=== PATIENT | female | born 1955 | race Caucasian/White ===

== ENCOUNTER 2017-08-05 08:30 | Emergency (ER) | payer MEDICARE, BC ==
[2017-08-05] MEDS ORDERED: Ibuprofen 200 MG TAB ONE (09:59)
[2017-08-05] MEDS ORDERED: traMADol HCl 50 MG TAB ONE (09:59)
--- NOTE | 2017-08-05 11:26 | RAD ---
RIGHT ANKLE 3 VIEWS: Date: 08/05/17 HISTORY: Fall at home. Heel and leg pain. COMPARISON: None. FINDINGS: Incomplete visualization of tibial hardware. 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 Chron ic appearing widening of the syndesmosis and medial ankle mortise. No acute fracture is appreciated. Severe lymphedema. There is pes planus deformity. This is likely chronic. IMPRESSION: 1. Chronic changes of the foot and ankle without displaced fracture. 2. Likely lymphedema throughout the lower extremity. POS: [facility]
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
== END 2017-08-05 10:42 | disposition home or self-care (01) ==
LOC: ERS 08:30
DX: S93.401A Sprain of unspecified ligament of right ankle, initial encounter (principal); S90.31XA Contusion of right foot, initial encounter; I10 Essential (primary) hypertension; E78.00 Pure hypercholesterolemia, unspecified; F41.9 Anxiety disorder, unspecified; Z79.82 Long term (current) use of aspirin; Z79.899 Other long term (current) drug therapy; W17.89XA Other fall from one level to another, initial encounter; Y92.002 Bathroom of unspecified non-institutional (private) residence as the place of occurrence of the external cause

== ENCOUNTER 2017-09-12 10:49 | Observation (INO) | payer MEDICARE, BC ==
[2017-09-12 11:18] LABS: #Eosinphils 0.1 thou/uL (0.0-0.7); #Lymphocytes 1.7 thou/uL (1.20-3.40); #Monocytes 0.4 thou/uL (0.11-0.59); #Neutrophils 2.8 thou/uL (1.40-6.50); %Basophils 0.8 % (0.0-1.0); %Eosinophils 1.6 % (0.0-10.0); %Lymphocytes 34.3 % (21.0-51.0); %Monocytes 7.9 % (0.0-10.0); Mean Platelet Volume 7.5 fL (7.4-10.4); Red Blood Cell (RBC) Count 4.28 mill/uL (4.20-5.40); White Blood Cell (WBC) Count 5.1 thou/uL (4.8-10.8)
[2017-09-12 11:28] LABS: PTT 23.5 SEC (22.9-36.1); Prothrombin Time 12.2 SEC (12.0-14.7)
[2017-09-12 11:48] LABS: ALT (SGPT) 10 U/L (8-55); AST (SGOT) 19 U/L (5-34); Alkaline Phosphatase 79 U/L (40-150); Anion Gap 16 mmol/L (10-20); BUN (Urea Nitrogen) 16 mg/dL (9.8-20.1); Bilirubin, Total 0.4 mg/dL (0.2-1.2); CK (CPK) 71 U/L (29-168); Calc. Creatinine Clearance 0 mL/min (70-130); Calcium 9.8 mg/dL (7.8-10.44); Carbon Dioxide 24 mmol/L (23-31); Chloride 106 mmol/L (98-107); Estimated GFR-MDRD 74; Globulin 2.8 g/dL (2.4-3.5); Lipase 12 U/L (8-78); Troponin I Less than 0.010 ng/mL (< 0.028)
--- NOTE | 2017-09-12 11:50 | RAD ---
PORTABLE AP CHEST X-RAY: 09/12/2017 HISTORY: Chest pain since last night. Left arm pain. Elevated blood pressure. COMPARISON: 03/17/2017 FINDINGS: The cardiac silhouette is magnified by projection but does appear mildly enlarged and is stable in s ize compared to the prior exam. There is stable mild prominence of the mediastinum, but this is als o a stable finding. The pulmonary vasculature is within normal limits, and the lungs are clear. De formity involving the proximal left humerus with irregularity of the left glenohumeral joint is agai n seen. IMPRESSION: Stable chest without evidence of an acute cardiopulmonary process. POS: [facility]
[2017-09-12 11:58] LABS: Digoxin Less than 0.15 ng/mL (0.8-2.0)
[2017-09-12] MEDS ORDERED: Nitroglycerin 2% Ointment 1 INCH/1 GM Packet ONE (12:17)
[2017-09-12] MEDS ORDERED: Ondansetron HCl/PF 4 MG/2 ML Vial ONE (12:17)
[2017-09-12] MEDS ORDERED: Acetaminophen 500 MG TAB ONE (12:54)
[2017-09-12] MEDS ORDERED: Ondansetron HCl/PF 4 MG/2 ML Vial IVP PRN (14:27)
[2017-09-12] MEDS ORDERED: Ondansetron ODT 4 MG TAB PO PRN ×2 (14:27→16:29)
[2017-09-12 14:47] VITALS: BMI 42.9
[2017-09-12] MEDS ORDERED: hydrALAZINE 20 MG/ML VIAL SLOW IVP PRN (14:49)
[2017-09-12] MEDS ORDERED: HYDROcodone/Acetaminophen 10/325 mg Tablet PO PRN (14:49)
[2017-09-12] MEDS ORDERED: Aspirin 325 MG TAB PO SCH (15:00)
[2017-09-12 15:29] LABS: Troponin I Less than 0.010 ng/mL (< 0.028)
[2017-09-12] MEDS ORDERED: Acetaminophen 325 MG TAB PO PRN (16:29)
[2017-09-12] MEDS ORDERED: Zolpidem Tartrate 5 MG TAB PO PRN (16:50)
[2017-09-12 16:53] LABS: Magnesium 2.1 mg/dL (1.6-2.6); Phosphorus 3.6 mg/dL (2.3-4.7)
[2017-09-12] MEDS: Penicillin V Potassium 250 MG TAB PO SCH ×2 (17:19→21:06)
[2017-09-12] MEDS: ALPRAZolam 0.5 MG TAB PO SCH (17:23)
[2017-09-12 18:12] LABS: Troponin I Less than 0.010 ng/mL (< 0.028)
[2017-09-12] MEDS: HYDROcodone/Acetaminophen 10/325 mg Tablet PO PRN ×2 (19:31→23:14)
[2017-09-12] MEDS ORDERED: Atorvastatin Calcium 40 MG TAB PO SCH (21:00)
[2017-09-12] MEDS ORDERED: Nitroglycerin 2% Ointment 1 INCH/1 GM Packet TOP SCH (22:00)
[2017-09-13] MEDS: HYDROcodone/Acetaminophen 10/325 mg Tablet PO PRN ×3 (03:05→11:11)
--- NOTE | 2017-09-13 05:27 | HP-2 ---
CODE STATUS: FULL. PRIMARY CARE PHYSICIAN: eGorge Perez M.D. ATTENDING PHYSICIAN: Obdulia Harris M.D. RESIDENT: Sarah Larkin MD HISTORIAN: Patient. CHIEF COMPLAINT: Chest pain. HISTORY OF PRESENT ILLNESS: The patient is a 62-year-old female with past medical history of fibromyalgia, diastolic heart failure and chronic kidney disease II, who presents with chest pain and elevated blood pressures. The patient states that the chest pain started a few days ago, but worsened today. Chest pain is located on the left side with radiation to her left neck and left arm. States that pain was relieved with Quanah medication and her left arm pain had significantly improved. Upon further questioning, she states that she fell in her bathroom 5 days ago and hit her left arm on the toilet. In addition, the patient has been out of her Quanah medication for the past few days and states she needs a refill upon discharge. Chest pain is associated with shortness of breath, nausea and headache. Denies any vision changes, vomiting or diaphoresis. In addition, patient states her blood pressure was elevated today. States she is compliant with her medications and has been taking them daily. In the ER, the patient was given Tylenol 1 gram, nitro and Zofran 4 mg IV. PAST MEDICAL HISTORY: 1. Fibromyalgia. 2. Diastolic congestive heart failure with an EF of 65% on 01/2017. 3. GERD. 4. Chronic back pain. 5. History of rotator cuff tears x2 and desires to not have them repaired. PAST SURGICAL HISTORY: Multiple leg surgeries. ALLERGIES: No known drug allergies. MEDICATIONS: 1. Atorvastatin 40 mg p.o. at bedtime. 2. Protonix 40 mg p.o. q.p.m. 3. Zofran 4 mg p.o. q.6 h. p.r.n. 4. Quanah 10/325 mg one tab p.o. q.4 h. p.r.n. pain. 5. Flonase 1 spray each naris daily. 6. HCTZ 25 mg p.o. daily. 7. Zolpidem 10 mg p.o. at bedtime. 8. Ramipril 10 mg p.o. daily. 9. Metoprolol succinate 100 mg p.o. daily. 10. Aspirin 325 mg p.o. daily. 11. Xanax 0.5 mg p.o. t.i.d. 12. Amitriptyline 10 mg p.o. daily. 13. Furosemide 20 mg or 40 mg ? 14. Penicillin V 500 mg p.o. q.i.d. FAMILY HISTORY: Heart disease with her father dying of a heart attack at 67 years old. SOCIAL HISTORY: Tobacco, 20 pack years and quit when she was 39 years old. Alcohol none. Drugs none. REVIEW OF SYSTEMS: Twelve-point review of systems including general, eyes, respiratory, CV, GI, , skin, ENTs, musculoskeletal, neuro and psych all negative except for pertinent positives mentioned in the HPI. PHYSICAL EXAMINATION: VITAL SIGNS: Blood pressure 188/117, pulse 91, respiratory rate 18, pulse oximetry 97% on room air, weight 59 kilograms. GENERAL: Alert, oriented x3, no apparent distress. Appropriately interactive. EYES: PERRLA, EOMI. ENT: Nasal mucosa within normal. Oropharynx within normal. NECK: Supple, no lymphadenopathy. CARDIOVASCULAR: Regular rate and rhythm, no murmurs. Radial pulses 2+. Tender to palpation of her left-sided chest and chest pain is reproducible. RESPIRATORY: Normal effort. Clear to auscultation bilaterally. SKIN: No cyanosis or lesions. ABDOMEN: Soft, nontender to palpation. Bowel sounds x4. EXTREMITIES: No cyanosis or edema. MUSCULOSKELETAL: Structure within normal, tone within normal. NEUROLOGIC: No focal deficits. Sensation within normal. LABORATORY DATA: Hemoglobin 13.6, hematocrit 41, MCV 96, white count 5.1, platelets 230. Sodium 142, potassium 4.3, chloride 106, bicarbonate 24, BUN 16, creatinine 0.79 , glucose 107. Calcium 9.8. Serum total protein 7.0. Albumin 4.2, AST 19, ALT 10, alkaline phosphatase 79, total bilirubin 0.4. Digoxin less than 0.15, troponin less than 0.01. Lipase of 12. EKG: No acute changes, prolonged QTC. Chest x-ray no acute process. ASSESSMENT AND PLAN: A 62-year-old female who presents with: 1. Hypertensive urgency. The patient presented to the ED with elevated blood pressures in the 200s. Of note, the patient has had multiple hospitalizations for hypertensive urgency and she always states that she is compliant with her blood pressure medications. During her previous hospitalizations, she is continued on her home meds and her blood pressures are stable and within normal limits. No changes are made to her blood pressure medications. Currently her blood pressure is normal. We will continue to monitor and adjust as needed. 2. Atypical chest pain, likely musculoskeletal in nature. The patient endorses that she fell about 5 days ago and hit her left arm on the toilet. In addition, chest pain resolved with Quanah. Patient's initial troponin is negative and EKG did not show any acute changes. We will check magnesium, phosphatase and TSH. The patient did have a stress test in 01/2017 and was normal. Will continue monitor cardiac enzymes. 3. Odontogenic infection status post tooth extraction on 09/07 and started on penicillin V. The patient does not know how many days she should be on the antibiotics, but does have a followup appointment with her dentist. 4. Diastolic congestive heart failure. Patient had an echo done on 01/2017 with an ejection fraction of 65% showing diastolic dysfunction. The patient is currently not in acute exacerbation. We will continue to monitor for signs and symptoms of fluid overload and will continue on home medications. 5. Fibromyalgia. We will continue home medications. 6. Gastroesophageal reflux disease. We will continue home Protonix. 7. Chronic back pain. We will continue on home Quanah. Of note, patient states that she is out of her Quanah medication and will need refills. I discussed this with her that she will need to follow up with her PCP for further Quanah refill medications. 8. Diet: Heart healthy. 9. Prophylaxis, sequential compression devices. CODE STATUS: FULL. DISPOSITION AND LENGTH OF HOSPITAL STAY: Less than 2 midnights. Symptomatic medications will be provided. History and physical exam as well as management discussed with Dr. Harris. KRYSTINA
[2017-09-13 07:30] LABS: Free T3 2.67 pg/mL (1.71-3.71)
[2017-09-13 08:30] VITALS: BP 144/74; TEMP 98
--- NOTE | 2017-09-13 08:52 | PDOC.FM ---
- Subjective Subjective: Pt doing well this morning. Denies any acute events overnight. Denies chest pain this morning. Denies SOB. Says she is still having pain in her left elbow and left forearm with movement. Also having pain with rotation. Concerned since she did fall on that arm. No other concerns at this time. - Objective Vital Signs & Weight: Vital Signs (12 hours) Temp Pulse Resp BP BP Pulse Ox 09/13/17 08:04 98.0 F 71 16 144/74 H 94 L 09/13/17 03:05 70 18 98/53 L 95 09/13/17 01:49 92 L 09/12/17 23:14 74 18 117/63 95 Weight Weight 60.827 kg I&O: 09/12/17 09/13/17 09/14/17 06:59 06:59 06:59 Intake Total 720 Balance 720 Result Diagrams: 09/12/17 11:16 09/12/17 11:16 Radiology Reviewed by me: Yes (CXR: No acute process) <Chema Sanabria - Last Filed: 09/13/17 08:50> - Objective Vital Signs & Weight: Vital Signs (12 hours) Temp Pulse Resp BP BP Pulse Ox 09/13/17 10:34 144/74 H 09/13/17 08:04 98.0 F 71 16 144/74 H 94 L 09/13/17 03:05 70 18 98/53 L 95 09/13/17 01:49 92 L 09/12/17 23:14 74 18 117/63 95 Weight Weight 134 lb 1.609 oz I&O: 09/12/17 09/13/17 09/14/17 06:59 06:59 06:59 Intake Total 720 Balance 720 Result Diagrams: 09/12/17 11:16 09/12/17 11:16 <Omar Lindsey - Last Filed: 09/13/17 10:42> Phys Exam - Physical Examination HEENT: moist MMs Neck: no nodes, no JVD Respiratory: no wheezing, no rales, no rhonchi, clear to auscultation bilateral Cardiovascular: RRR, no significant murmur, no rub Gastrointestinal: soft, non-tender, no distention, positive bowel sounds Musculoskeletal: no edema, pulses present Pain with flexion and extension in L. elbow. Pain in L. forearm with rotation. Some crepitus noted. Pain to palpation Neurological: non-focal, normal sensation, moves all 4 limbs Psychiatric: normal affect, A&O x 3 Skin: no rash <Chema Sanabria - Last Filed: 09/13/17 08:50> Dx/Plan (1) Atypical chest pain Code(s): R07.89 - OTHER CHEST PAIN Status: Acute Plan: Pain likely related to msk pain from fall on her L. arm and side. -pain in chest improved -Will get X-ray of L. elbow and L. forearm as that is where she is experiencing pain. -Troponins <.01x3. No need for any other heart testing at this time -No SOB. (2) Hypertensive urgency Code(s): I16.0 - HYPERTENSIVE URGENCY Status: Acute Plan: Started on home regimen of BP medication -BP stable -Will continue to monitor at this time. (3) Fibromyalgia Status: Chronic Plan: -continue home meds (4) GERD (gastroesophageal reflux disease) Code(s): K21.9 - GASTRO-ESOPHAGEAL REFLUX DISEASE WITHOUT ESOPHAGITIS Status: Chronic Plan: -continue home meds (5) Odontogenic infection of jaw Code(s): M27.2 - INFLAMMATORY CONDITIONS OF JAWS Status: Acute Plan: -Is taking penicillin. Will continue while here. Does not know how long a course she needs. Will f/u with her dentist outpt (6) Chronic pain Code(s): G89.29 - OTHER CHRONIC PAIN Status: Chronic Qualifiers: Chronic pain type: chronic pain syndrome Qualified Code(s): G89.4 - Chronic pain syndrome Plan: -started patients home norco. -Will continue to assess and tx pain as needed (7) Diastolic heart failure Code(s): I50.30 - UNSPECIFIED DIASTOLIC (CONGESTIVE) HEART FAILURE Status: Chronic Plan: -continue home meds -No sign of exacerbation at this time. Will continue to monitor fluid status <Chema Sanabria - Last Filed: 09/13/17 08:50> Attending Addendum - Attending Addendum I personally evaluated the patient and discussed the management with Dr. Sanabria I agree with the History, Examination, Assessment and Plan documented above with any addition or exceptions noted below. Patient admitted for chest pain evaluation. She fell and has left neck and shoulder pain along with some anterior upper left chest pain. Pain seems to be musculoskeletal. X-rays are negative. EKG and enzymes are negative as well. We will DC home today. Close followup with her primary. <Omar Lindsey - Last Filed: 09/13/17 10:42>
[2017-09-13] MEDS ORDERED: Fluticasone Propionate Nasal Spray 16 gm Bottle NASAL SCH (09:00)
[2017-09-13] MEDS ORDERED: Hydrochlorothiazide 25 MG TAB PO SCH (09:00)
[2017-09-13] MEDS ORDERED: Aspirin 325 MG TAB PO SCH ×2 (09:00)
[2017-09-13] MEDS ORDERED: Amitriptyline HCl 10 MG TAB PO SCH (09:00)
[2017-09-13] MEDS ORDERED: Ramipril 5 MG CAP PO SCH (09:00)
--- NOTE | 2017-09-13 09:58 | RAD ---
TWO VIEWS LEFT FOREARM: Comparison: None. History: Fall with pain. FINDINGS: Two views of the left forearm shows severe degenerative change in the elbow joint. There also appear s to be degenerative in the radiocarpal joint. There is no evidence of acute fracture or dislocation . IMPRESSION: Severe degenerative changes in the wrist and elbow without acute osseous abnormality. POS: [facility]
--- NOTE | 2017-09-13 10:00 | RAD ---
FOUR VIEWS LEFT ELBOW: Comparison: None. History: Fall with elbow pain. Pain with movement. 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 There is no evidence of acute fracture or dislocation. No obvious elbow effusion is seen. IMPRESSION: Severe degenerative changes of the left elbow without acute osseous abnormality. POS: [facility]
[2017-09-13] MEDS: ALPRAZolam 0.5 MG TAB PO SCH (10:32)
[2017-09-13] MEDS: Penicillin V Potassium 250 MG TAB PO SCH (10:33)
--- NOTE | 2017-09-14 13:43 | DIS-2 ---
DATE OF ADMISSION: 09/12/2017 DATE OF DISCHARGE: 09/13/2017 RESIDENT: Chema Sanabria MD, PGY-1 ATTENDING ON ADMISSION: Obdulia Harris MD DISCHARGE ATTENDING: Omar Lindsey MD CONSULTATIONS: None. PROCEDURES: None. PRIMARY DIAGNOSES: 1. Atypical chest pain. 2. Hypertensive urgency. 3. Fibromyalgia. 4. Gastroesophageal reflux disease. 5. Odontogenic infection of jaw. 6. Chronic pain. 7. Diastolic heart failure. DISCHARGE MEDICATIONS: Alprazolam 0.5 mg t.i.d., acetaminophen with codeine 300 mg/30 mg tablet 1-2 tablets q. 4 hours, amitriptyline 10 mg tab daily, aspirin 325 mg tab daily, pravastatin 40 mg tab daily, fluticasone propionate 1 spray each nasal, furosemide 20 mg tablet daily, hydrocodone 10/325 q. 4 hours p.r.n., hydrochlorothiazide 25 mg p.o. daily, metoprolol succinate 100 mg tab daily, ondansetron 4 mg tab q. 6 hours p.r.n., pantoprazole 40 mg daily tab, and penicillin 250 mg tab. DISCONTINUE MEDICATIONS: None. HISTORY OF PRESENT ILLNESS AND BRIEF HOSPITAL COURSE: This is a 62-year-old female that presented to the ER with chest pain that started a few days ago but worsened on admission, was located on the left side with radiation to her left neck and left arm. When talking with the patient, it was found out that she fell in her bathroom about 5 days ago and fell onto her left arm. The patient said that she was relieving the pain with Westbrook and recently just ran out of Westbrook. Said chest pain was associated with shortness of breath, nausea, and headache. During this time, she presented with atypical chest pain. We admitted her for observation on the tele monitor. She did have a history of diastolic heart failure. We trended her troponins; they were less than 0.01 x3. We checked a digoxin level which was less than 0.15. Her other labs were benign during the visit. Nothing on Hematology. After finding out that she had fallen, she was having most pain in her forearm and elbow with movement and rotation, we got a forearm x-ray which was negative and an elbow x-ray which was negative as well for any acute abnormality. It did show some severe degenerative changes of the elbow. No acute events overnight on the tele monitor. At this time, we decided she was stable from discharge and needed to follow up with her primary care doctor to get her Westbrook filled. Per x-ray, she did not need any further workup from an orthopedic standpoint. DISPOSITION: Stable. DISCHARGE INSTRUCTIONS: 1. Location: Home. 2. Diet: Heart healthy. 3. Activity: As tolerated and 4. Follow Up follow up with her primary care doctor for hospital followup in 2 weeks and to get norco filled. KRYSTINA
== END 2017-09-13 12:21 | disposition home or self-care (01) ==
LOC: ERS 10:49 → 2SW 12:46
PROVIDERS: ADMIT Internal Medicine; ATTEND Internal Medicine
DX: R07.89 Other chest pain (principal); I16.0 Hypertensive urgency; M79.7 Fibromyalgia; K21.9 Gastro-esophageal reflux disease without esophagitis; G89.29 Other chronic pain; N18.2 Chronic kidney disease, stage 2 (mild); I50.30 Unspecified diastolic (congestive) heart failure; M54.9 Dorsalgia, unspecified; M27.2 Inflammatory conditions of jaws; M75.100 Unspecified rotator cuff tear or rupture of unspecified shoulder, not specified as traumatic; R03.0 Elevated blood-pressure reading, without diagnosis of hypertension; Z79.2 Long term (current) use of antibiotics; Z79.82 Long term (current) use of aspirin; Z79.51 Long term (current) use of inhaled steroids; Z79.899 Other long term (current) drug therapy; Z87.891 Personal history of nicotine dependence; Z82.49 Family history of ischemic heart disease and other diseases of the circulatory system
CPT/HCPCS: 71010; 73080; 73090; 80061; 80162; 82550; 82553; 83690; 83735; 84100; 84439; 84481; 84484 ×2; 85610; 85730; 93005; 94760; 96374; 96375; 99285; G0378; 36415; 80053; 84443; 85025; J0360; J2405

== ENCOUNTER 2017-09-26 12:10 | Emergency (ER) | payer MEDICARE, BC ==
[2017-09-26 13:50] LABS: #Basophils 0.1 thou/uL (0.0-0.2); #Eosinphils 0.1 thou/uL (0.0-0.7); #Lymphocytes 1.8 thou/uL (1.20-3.40); #Monocytes 0.3 thou/uL (0.11-0.59); #Neutrophils 3.9 thou/uL (1.40-6.50); %Basophils 1.3 % (0.0-1.0); %Eosinophils 1.7 % (0.0-10.0); %Lymphocytes 28.8 % (21.0-51.0); %Monocytes 5.4 % (0.0-10.0); Hematocrit 37.8 % (36.0-47.0); Red Blood Cell (RBC) Count 3.83 mill/uL (4.20-5.40); White Blood Cell (WBC) Count 6.2 thou/uL (4.8-10.8)
[2017-09-26 14:14] LABS: ALT (SGPT) 7 U/L (8-55); AST (SGOT) 16 U/L (5-34); Alkaline Phosphatase 66 U/L (40-150); Anion Gap 13 mmol/L (10-20); BUN (Urea Nitrogen) 13 mg/dL (9.8-20.1); Bilirubin, Total 0.3 mg/dL (0.2-1.2); Calc. Creatinine Clearance 0 mL/min (70-130); Calcium 9.1 mg/dL (7.8-10.44); Carbon Dioxide 27 mmol/L (23-31); Chloride 105 mmol/L (98-107); Estimated GFR-MDRD 79; Globulin 2.4 g/dL (2.4-3.5); Protein, Total 6.1 g/dL (6.0-8.3)
[2017-09-26 14:25] LABS: Lipase 13 U/L (8-78)
[2017-09-26] MEDS ORDERED: Ondansetron HCl/PF 4 MG/2 ML Vial ONE (15:52)
[2017-09-26] MEDS ORDERED: Lorazepam 2 MG/ML VIAL ONE (16:46)
--- NOTE | 2017-09-26 17:35 | CT ---
CT ABDOMEN AND PELVIS WITH IV CONTRAST 09/26/17 Multiple axial tomograms obtained through the abdomen and pelvis with IV enhancement. Oral contrast w as not administered. HISTORY: Left abdominal pain. Diarrhea. Lung bases are clear. The liver, spleen, pancreas, and adrenal glands are unremarkable. Kidneys are unremarkable. No hydronephrosis. Small bowel loops appear normal. The appendix is upper normal size measured at 8 mm; however, there i s no surrounding inflammatory change identified. Recommend clinical correlation and close followup re garding right lower quadrant pain. Colon is otherwise unremarkable. The urinary bladder is mildly distended but is unremarkable. The kei dirk and adnexa appear unremarkable. Aorta is normal caliber. No adenopathy identified. IMPRESSION: 1. The appendix is upper normal diameter measured at 8 mm. No significant inflammatory change se en. Recommend clinical correlation and followup as indicated. 2. Otherwise no acute intra-abdominal process. POS: [facility]
[2017-09-26 17:52] LABS: Bilirubin Negative (Negative); Blood, Urine Negative (Negative); Glucose, Urine (Dipstick) Negative (Negative); Ketone, Urine Negative (Negative); Nitrite Negative (Negative); Protein, Urine (Dipstick) Negative (Neg-Trace); Urobilinogen 0.2 mg/dL (0.2-1.0)
--- NOTE | 2017-11-06 12:31 | EKG ---
Test Reason : Blood Pressure : / mmHG Vent. Rate : 068 BPM Atrial Rate : 068 BPM P-R Int : 154 ms QRS Dur : 074 ms QT Int : 406 ms P-R-T Axes : 036 021 038 degrees QTc Int : 431 ms Normal sinus rhythm Normal ECG No ST elevation/IL Confirmed by JOSE A POWELL ([id number]), assistant film editor DONNY SANCHEZ ([id number]) on 11/06/2017 12:30:41 PM Referred By: Confirmed By:JOSE A POWELL
== END 2017-09-26 18:18 | disposition home or self-care (01) ==
LOC: ERS 12:10
DX: R10.12 Left upper quadrant pain (principal); I10 Essential (primary) hypertension; E34.3 Short stature due to endocrine disorder
CPT/HCPCS: 36415; 74177; 80053; 81003; 82553; 83690; 83735; 84484; 85025; 93005; 96374; 96375; J2060; J2405

== ENCOUNTER 2017-10-12 04:27 | Emergency (ER) | payer MEDICARE, BC ==
[2017-10-12 05:04] LABS: #Basophils 0.1 thou/uL (0.0-0.2); #Lymphocytes 2.4 thou/uL (1.20-3.40); #Monocytes 0.6 thou/uL (0.11-0.59); %Basophils 0.5 % (0.0-1.0); %Eosinophils 0.1 % (0.0-10.0); %Lymphocytes 23.6 % (21.0-51.0); %Monocytes 5.9 % (0.0-10.0); Hematocrit 44.9 % (36.0-47.0); Mean Platelet Volume 8.1 fL (7.4-10.4); Red Blood Cell (RBC) Count 4.73 mill/uL (4.20-5.40)
[2017-10-12] MEDS ORDERED: Ondansetron HCl/PF 4 MG/2 ML Vial ONE (05:16)
[2017-10-12 05:17] LABS: ALT (SGPT) Less than 7 U/L (8-55); AST (SGOT) 15 U/L (5-34); Alkaline Phosphatase 80 U/L (40-150); Anion Gap 21 mmol/L (10-20); BUN (Urea Nitrogen) 28 mg/dL (9.8-20.1); Bilirubin, Total 0.6 mg/dL (0.2-1.2); CK (CPK) 57 U/L (29-168); Calc. Creatinine Clearance 0 mL/min (70-130); Calcium 9.9 mg/dL (7.8-10.44); Carbon Dioxide 20 mmol/L (23-31); Chloride 102 mmol/L (98-107); Estimated GFR-MDRD 51; Globulin 3.3 g/dL (2.4-3.5); Lipase 26 U/L (8-78); Protein, Total 7.8 g/dL (6.0-8.3)
[2017-10-12 05:21] LABS: Troponin I 0.012 ng/mL (< 0.028)
[2017-10-12] MEDS ORDERED: hydrALAZINE 20 MG/ML VIAL ONE (05:25)
[2017-10-12 06:04] LABS: Lactic Acid - Sepsis 1.4 mmol/L (0.5-2.2)
--- NOTE | 2017-10-12 07:45 | RAD ---
PORTABLE CHEST 1 VIEW: Date: 10/12/17 Time: 0514 hours HISTORY: Nausea, vomiting, abdominal pain, uncontrolled hypertension, and headache. FINDINGS: Comparison made with exam of 09/12/17. The heart size is enlarged. No confluent areas of consolidation, pneumothorax, merlin pulmonary edema, or pleural effusions are seen. Deformity in the left proximal humerus is again seen. IMPRESSION: No acute process. POS: [facility]
== END 2017-10-12 06:30 | disposition home or self-care (01) ==
LOC: ERS 04:27
DX: I10 Essential (primary) hypertension (principal); R11.2 Nausea with vomiting, unspecified
CPT/HCPCS: 36415; 71010; 80053; 82553; 83605; 83690; 84484; 85025; 93005; 96361; 96374; 96375; J0360; J2405

== ENCOUNTER 2018-01-25 01:58 | Emergency (ER) | payer MEDICARE, BC ==
[2018-01-25] MEDS ORDERED: HYDROcodone/Acetaminophen 5/325 mg Tablet ONE (02:48)
[2018-01-25 02:55] LABS: Anion Gap 13 mmol/L (10-20); BUN (Urea Nitrogen) 21 mg/dL (9.8-20.1); Calc. Creatinine Clearance 0 mL/min (70-130); Calcium 9.9 mg/dL (7.8-10.44); Carbon Dioxide 25 mmol/L (23-31); Chloride 102 mmol/L (98-107); Estimated GFR-MDRD 72; Glucose 108 mg/dL (80-115); Sodium 136 mmol/L (136-145)
[2018-01-25] MEDS ORDERED: cloNIDine 0.1 MG TAB ONE (04:10)
[2018-01-25] MEDS ORDERED: Ondansetron ODT 4 MG TAB ONE (04:12)
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
--- NOTE | 2018-01-25 08:17 | RAD ---
FRONTAL RADIOGRAPH CHEST: Date: 01-25-18 Comparison: 10-12-17 History: Trauma, pain. FINDINGS: Heart and mediastinal contours are stable. No pneumothorax, pleural fluid, focal consolidation or yvrose eolar edema. There is prominent bilateral glenohumeral joint degenerative change, left greater than r ight. Question prior/remote fracture of proximal left humerus. IMPRESSION: Chronic findings as described above. POS: [facility]
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
== END 2018-01-25 05:10 | disposition home or self-care (01) ==
LOC: ERS 01:58
DX: S00.03XA Contusion of scalp, initial encounter (principal); S00.511A Abrasion of lip, initial encounter; K02.9 Dental caries, unspecified; K03.81 Cracked tooth; M19.012 Primary osteoarthritis, left shoulder; M19.011 Primary osteoarthritis, right shoulder; I10 Essential (primary) hypertension; E34.3 Short stature due to endocrine disorder; Z79.82 Long term (current) use of aspirin; Z79.899 Other long term (current) drug therapy; Y04.2XXA Assault by strike against or bumped into by another person, initial encounter
CPT/HCPCS: 36415; 70450; 70486; 71045; 72125; 80048; Q0162

== ENCOUNTER 2018-02-13 09:12 | Emergency (ER) | payer MEDICARE, BC ==
[2018-02-13 09:59] LABS: #Basophils 0.1 thou/uL (0.0-0.2); #Eosinphils 0.1 thou/uL (0.0-0.7); #Lymphocytes 1.9 thou/uL (1.20-3.40); #Monocytes 0.5 thou/uL (0.11-0.59); %Basophils 0.8 % (0.0-1.0); %Eosinophils 1.2 % (0.0-10.0); %Lymphocytes 21.9 % (21.0-51.0); %Monocytes 5.8 % (0.0-10.0); %Neutrophils 70.3 % (42.0-75.0); Hemoglobin 13.4 g/dL (12.0-16.0); Mean Corpuscular HGB CONC 32.9 g/dL (32.0-36.0); Mean Corpuscular Hemoglobin 30.8 pg (27.0-31.0); Mean Corpuscular Volume 93.6 fl (81.0-99.0); Platelet Count 243 thou/uL (130-400); RBC Distribution Width 11.4 % (11.5-14.5); Red Blood Cell (RBC) Count 4.36 mill/uL (4.20-5.40); White Blood Cell (WBC) Count 8.5 thou/uL (4.8-10.8)
[2018-02-13] MEDS ORDERED: Ondansetron HCl/PF 4 MG/2 ML Vial ONE (10:16)
[2018-02-13 10:19] LABS: ALT (SGPT) 8 U/L (8-55); AST (SGOT) 19 U/L (5-34); Alkaline Phosphatase 73 U/L (40-150); Anion Gap 14 mmol/L (10-20); BUN (Urea Nitrogen) 19 mg/dL (9.8-20.1); Bilirubin, Total 0.3 mg/dL (0.2-1.2); CK (CPK) 88 U/L (29-168); Calc. Creatinine Clearance 0 mL/min (70-130); Calcium 9.9 mg/dL (7.8-10.44); Carbon Dioxide 23 mmol/L (23-31); Chloride 107 mmol/L (98-107); Estimated GFR-MDRD 69; Globulin 2.6 g/dL (2.4-3.5); Glucose 109 mg/dL (80-115); Potassium 4.2 mmol/L (3.5-5.1); Protein, Total 6.6 g/dL (6.0-8.3); Sodium 140 mmol/L (136-145)
[2018-02-13 10:24] LABS: CKMB 1.9 ng/mL (0-6.6); Troponin I Less than 0.010 ng/mL (< 0.028)
[2018-02-13 10:27] LABS: CRP (Inflammatory) Less than 0.50 mg/dL (= or < 0.5); Lipase 14 U/L (8-78)
--- NOTE | 2018-02-13 10:49 | RAD ---
PORTABLE AP CHEST X-RAY: 02/13/2018 HISTORY: Left-sided chest pain with pain radiating to the left side of the neck and the arm. Discomfort in th e epigastric region. COMPARISON: 01/25/2018 FINDINGS: The cardiac silhouette is magnified by projection but does appear mildly enlarged. There is prominen ce of the mediastinal structures, but this is stable when compared to the prior exam, as well as the study on 10/12/2017, and may be related to vascular structures. The lungs are clear. There is bilat eral glenohumeral osteoarthropathy. There is stable deformity of the left proximal humerus. No othe r interval change. IMPRESSION: 1. No acute cardiopulmonary process. 2. Mild cardiomegaly. POS: [facility]
[2018-02-13] MEDS ORDERED: cloNIDine 0.1 MG TAB ONE (11:43)
[2018-02-13] MEDS ORDERED: Lorazepam 2 MG/ML VIAL ONE (13:05)
[2018-02-13] MEDS ORDERED: Metoprolol Tartrate 5 MG/5 ML VIAL ONE (13:05)
[2018-02-13 13:55] LABS: CKMB 1.7 ng/mL (0-6.6); Troponin I Less than 0.010 ng/mL (< 0.028)
[2018-02-13] MEDS ORDERED: Ketorolac Tromethamine 10 MG TAB PO SCH (14:15)
== END 2018-02-13 15:59 | disposition home or self-care (01) ==
LOC: ERS 09:12
DX: G89.4 Chronic pain syndrome (principal); R07.89 Other chest pain; I10 Essential (primary) hypertension; E78.00 Pure hypercholesterolemia, unspecified; Z79.899 Other long term (current) drug therapy; Z79.82 Long term (current) use of aspirin
CPT/HCPCS: 36415; 71045; 80053; 82553; 83690; 84484; 85025; 86140; 93005; 96361; 96374; 96375; J2060; J2405

== ENCOUNTER 2018-02-26 10:02 | Day surgery (SDC) | payer MEDICARE, BC ==
[2018-02-25 17:45] VITALS: BMI 39.7
[2018-02-26] MEDS ORDERED: Famotidine 20 MG TAB ONE (12:10)
--- NOTE | 2018-02-26 12:52 | OP ---
DATE OF PROCEDURE: 02/26/2018 PROCEDURES: Esophagogastroduodenoscopy with gastric biopsy and balloon dilation of an esophageal str icture. PREOPERATIVE DIAGNOSIS: Dysphagia. OPERATIVE NOTE: Informed consent was obtained from the patient. She was sedated with total intraven ous anesthesia. The bite block was placed and the endoscope was advanced easily to the second portio n of the duodenum and retroflexion was performed in the stomach. The esophagus had a stricture in th e distal esophagus, a centimeter or two above the GE junction. There was an ulceration in this area. The stricture was dilated to 18 mm with a balloon dilator with appropriate tear at the dilation sit e. The stomach had erosive gastritis in the antrum, which was mild overall. Biopsies were obtained to rule out H. pylori. Retroflexed views in the stomach were normal. The pylorus and first and seco nd portions of the duodenum were normal. IMPRESSION: 1. Esophageal stricture with shallow ulceration at the stricture site. This was dilated to 18 mm wi th a balloon dilator. 2. Erosive antral gastritis. Biopsies taken to rule out Helicobacter pylori. 3. Otherwise normal esophagogastroduodenoscopy. RECOMMENDATIONS: 1. Await histopathology. 2. Continue pantoprazole 40 mg daily. 3. Follow up in GI clinic in 1 month.
[2018-02-26] MEDS ORDERED: PROPOFOL 200 MG/20 ML VIAL ONE (16:21)
[2018-02-26] MEDS ORDERED: Lidocaine 1% PF 5 ML VIAL ONE (16:21)
== END 2018-02-26 13:25 | disposition home or self-care (01) ==
LOC: SDC 10:02
PROVIDERS: ATTEND Internal Medicine Gastroenterology
PROC: 0DB68ZX Excision of Stomach, Via Natural or Artificial Opening Endoscopic, Diagnostic (ICD-10-PCS; principal; 2018-02-26)
PROC: 0D758ZZ Dilation of Esophagus, Via Natural or Artificial Opening Endoscopic (ICD-10-PCS; 2018-02-26)
DX: K31.9 Disease of stomach and duodenum, unspecified (principal); K22.2 Esophageal obstruction; Z87.891 Personal history of nicotine dependence; Z98.890 Other specified postprocedural states
CPT/HCPCS: 88305; 88312; J2001; J2704

== ENCOUNTER 2019-12-09 22:34 | Inpatient (IN) | payer MEDICARE, BC ==
[2019-12-09] MEDS ORDERED: Ondansetron ODT 8 MG TAB ONE (23:02)
[2019-12-09 23:52] LABS: #Basophils 0.1 thou/uL (0.0-0.2); #Eosinphils 0.4 thou/uL (0.0-0.7); #Lymphocytes 2.4 thou/uL (1.20-3.40); #Monocytes 0.8 thou/uL (0.11-0.59); #Neutrophils 4.1 thou/uL (1.40-6.50); %Basophils 0.9 % (0.0-1.0); %Eosinophils 4.7 % (0.0-10.0); %Lymphocytes 30.6 % (21.0-51.0); %Monocytes 10.8 % (0.0-10.0); Hemoglobin 9.3 g/dL (12.0-16.0); Mean Corpuscular HGB CONC 32.4 g/dL (32.0-36.0); Mean Corpuscular Hemoglobin 26.5 pg (27.0-31.0); Mean Platelet Volume 8.3 fL (7.4-10.4); Platelet Count 177 thou/uL (130-400); RBC Distribution Width 14.4 % (11.5-14.5); White Blood Cell (WBC) Count 7.7 thou/uL (4.8-10.8)
[2019-12-10 00:21] LABS: ALT (SGPT) Less than 7 U/L (8-55); AST (SGOT) 12 U/L (5-34); Albumin 3.5 g/dL (3.4-4.8); Alkaline Phosphatase 54 U/L (40-110); Anion Gap 11 mmol/L (10-20); BUN (Urea Nitrogen) 44 mg/dL (9.8-20.1); Bilirubin, Total 0.2 mg/dL (0.2-1.2); Calc. Creatinine Clearance 0 mL/min (70-130); Calcium 8.9 mg/dL (7.8-10.44); Carbon Dioxide 21 mmol/L (23-31); Chloride 108 mmol/L (98-107); Estimated GFR-MDRD 27; Globulin 2.5 g/dL (2.4-3.5); Glucose 102 mg/dL (80-115); Potassium 4.4 mmol/L (3.5-5.1); Sodium 136 mmol/L (136-145)
[2019-12-10] MEDS ORDERED: Clindamycin/D5W 600 mg/50 ml Premix Bag ONE (00:41)
--- NOTE | 2019-12-10 01:19 | PDOC.FPRHP ---
- History of Present Illness Chief Complaint: LE Edema History of Present Illness: Mrs. Esteban is a 64 yo lady with PMH significant for dwarfism requiring multiple leg surgeries, OA, chronic pain, HTN who presents with a 3 week hx of cellulitis and failed outpt treatment of levaquin. She was seen by her PCP who started abx 1 week ago and finished course today. She has simultaneous LE edema which she states in not normal for her. Her L leg is worse than R leg. She has trouble ambulating with pain at baseline but exacerbated with skin lesion. At baseline requires stepping stool for most activities. She endorsed a fever, insomnia. She states her last fever was today, 101. In the emergency department she was given clindamycin, zofran. - Allergies/Adverse Reactions Allergies Allergy/AdvReac Type Severity Reaction Status Date / Time No Known Drug Allergies Allergy Verified 02/25/18 17:45 - Home Medications Medication Instructions Recorded Confirmed Type Metoprolol Succinate 100 mg PO QAM 10/01/14 12/10/19 History Zolpidem Tartrate 10 mg PO HS 10/01/14 12/10/19 History Hydrochlorothiazide 25 mg PO DAILY 01/18/17 12/10/19 History Pantoprazole [Protonix] 40 mg PO QPM 01/18/17 12/10/19 History Morphine ER [MS Contin] 15 mg PO TID PRN 12/10/19 12/10/19 History Nystatin [Nystatin Ointment] 1 applic TOP BID 12/10/19 12/10/19 History hydrOXYzine [Atarax] 10 mg PO TID PRN 12/10/19 12/10/19 History - History PMHx: dwarfism, esophageal strictures, HLD, OA, chronic pain, muscle weakness, HTN PSHx: L knee replacement, multiple procedures on legs FHx: non-contributory Social: denies tobacco, drugs, alcohol - Review of Systems General: reports: fever/chills, weight/appetite/sleep changes ENT: denies: nasal congestion, rhinorrhea Respiratory: denies: cough, congestion, shortness of breath Cardiovascular: reports: edema. denies: chest pain, palpitation, orthopnea Gastrointestinal: denies: nausea, vomiting, diarrhea, constipation Skin: reports: rashes, lesions Musculoskeletal: reports: pain, tenderness, arthritis/arthralgias Neurological: denies: numbness, syncope - Vital signs BP: 163/70 HR: 88 RR: 16 Tmax: 99.1 Pox: 100%% on RA Wt: 47.6 kg - Physical Exam Constitutional: NAD, awake, alert and oriented HEENT: PERRLA, EOMI Neck: trachea midline, no JVD Heart: RRR, normal S1/S2, pulses present -Heart: pitting le edema up to thigh Lungs: CTAB, no respiratory distress, good air movement Abdomen: soft, bowel sounds present Neurological: no focal deficit, CN II-XII intact -Skin: circumferential erythema from thigh to feet, pain to touch, no weeping lesions, no pustules Psychiatric: good judgment and insight FMR H&P: Results - Labs Result Diagrams: 12/09/19 23:43 12/09/19 23:43 Lab results: WBC 7.7 thou/uL (4.8-10.8) 12/09/19 23:43 Hgb 9.3 g/dL (12.0-16.0) L 12/09/19 23:43 Hct 28.7 % (36.0-47.0) L 12/09/19 23:43 MCV 82.0 fL (78.0-98.0) 12/09/19 23:43 Plt Count 177 thou/uL (130-400) 12/09/19 23:43 Neutrophils % 53.0 % (42.0-75.0) 12/09/19 23:43 Sodium 136 mmol/L (136-145) 12/09/19 23:43 Potassium 4.4 mmol/L (3.5-5.1) 12/09/19 23:43 Chloride 108 mmol/L (98-107) H 12/09/19 23:43 Carbon Dioxide 21 mmol/L (23-31) L 12/09/19 23:43 BUN 44 mg/dL (9.8-20.1) H 12/09/19 23:43 Creatinine 1.89 mg/dL (0.6-1.1) H 12/09/19 23:43 Glucose 102 mg/dL (80-115) 12/09/19 23:43 Calcium 8.9 mg/dL (7.8-10.44) 12/09/19 23:43 Total Bilirubin 0.2 mg/dL (0.2-1.2) 12/09/19 23:43 AST 12 U/L (5-34) 12/09/19 23:43 ALT Less than 7 U/L (8-55) L 12/09/19 23:43 Alkaline Phosphatase 54 U/L (40-110) 12/09/19 23:43 B-Natriuretic Peptide 281.7 pg/mL (0-100) H 12/09/19 23:43 Serum Total Protein 6.0 g/dL (6.0-8.3) 12/09/19 23:43 Albumin 3.5 g/dL (3.4-4.8) 12/09/19 23:43 FMR H&P: A/P - Problem List (1) Leg edema Current Visit: Yes Status: Acute Code(s): R60.0 - LOCALIZED EDEMA (2) Cellulitis Current Visit: Yes Status: Acute Code(s): L03.90 - CELLULITIS, UNSPECIFIED (3) Chronic pain Current Visit: No Status: Chronic Code(s): G89.29 - OTHER CHRONIC PAIN Qualifiers: Chronic pain type: chronic pain syndrome Qualified Code(s): G89.4 - Chronic pain syndrome (4) Dwarfism Current Visit: No Status: Chronic Code(s): E34.3 - SHORT STATURE DUE TO ENDOCRINE DISORDER (5) GERD (gastroesophageal reflux disease) Current Visit: No Status: Chronic Code(s): K21.9 - GASTRO-ESOPHAGEAL REFLUX DISEASE WITHOUT ESOPHAGITIS (6) Hypertension Current Visit: No Status: Chronic Code(s): I10 - ESSENTIAL (PRIMARY) HYPERTENSION - Plan Pt is a 64 yo female who presents for LE cellulitis/edema: # LE Cellulitis WBC WNL. Failed outpt levaquin. S/p one dose clindamycin. - Start vanc, pharm to dose due to CrCl < 30. Cover for MRSA. # LE Edema - monitor, likely secondary to cellulitis. BNP mildly elevated ,281, from her baseline. Echocardiogram pending. 01/19 echo was WNL. # Normocytic Anemia - consider iron studies or work up in the outpt setting # KEENA BL 0.83. Elevated to 1.89. - held home HCTZ - did not start fluids at this time # HTN - held home HCTZ - cont metoprolol # Chronic pain - cont home meds # Insomnia - cont home meds Diet: HH Fluids: SL VTE: Heparin for CrCl < 30 Code: Full Dispo: > 48 hr stay FMR H&P: Upper Level - Plan Date/Time: 12/10/19 0118 Mariella Hillman DO, have evaluated this patient and agree with findings/plan as outlined by internal grinder resident. Pertinent changes/additions are listed here. Pt is a 64 yo M with PMH of HTN, GERD, OA, and chronic pain syndrome presenting for LE pain and erythema, onset 3 weeks ago on LLE, saw her orthopedist Dr. Cruz , 1 week ago, who started her on Levaquin. She reports persistent pain, worsening erythema- now on RLE, n/v, and fever (101). In the ED she was given Clindamycin and Zofran. Pertinent Hx: multiple surgeries on b/l LE, last one years ago. VS: 163/70, P88, R16, T99.1, O2100% RA PE: Gen: dwarfism, NAD HEENT: Moist MM, no JVD Heart: RRR, no murmurs or extra sounds. Distal pulses 2+ Lungs: CTAB, no wheezing. No increased work of breathing Abd: soft, nontender, BS+ Ext: well defined bright erythema patches that are circumferential from ankle up into mid thigh area (L>R) with some blistering and mild weeping of L leg, area is hot to touch and ttp, associated swelling that is 1-2+ Skin: no open wounds present Psych: AOx3, normal mood Pertinent Labs/Imaging: BUN 44, Cr 1.89 BNP 281.7 Hgb 9.3, Hct 28.7, MCV 82 WBC 7.7 A/P: LE Cellulitis, Failed Outpatient Abx -progressive b/l LE edema and erythema up to level of mid thigh. Admit to medical. s/p IV Clinda in ED. With systemic symptoms of fever, will switch over to IV Vancomycin. Have the nurse draw lines of cellulitis. No areas of fluctuance concerning for abscess at this time although if failure to improve, consider imaging. KEENA -FeNa pending -encourage PO hydration at this time, after urine collected, consider gentle IV hydration -renally dose meds Elevated BNP: -281.7 -hx of HFpEF, last echo 2016, EF 65% -echo pending Normocytic Anemia: -Hgb 9.3 -Hx of iron deficiency anemia -repeat iron studies -repeat CBC in am. Chronic Medical Conditions (HTN, Chronic Pain, Insomnia): -resume home meds. DVT PPx: Heparin GI PPx: Protonix Code status: Full Dispo: LOS >48h Addendum - Attending - Attending Attestation Date/Time: 12/10/19 1231 I personally evaluated the patient and discussed the management with the team. I agree with the History, Examination, Assessment and Plan documented above with any addition or exceptions noted below. Patient with what sounds like a zpack from PCP for pharyngitis over a week ago, then seen by ortho and rx'd a FQ. Cellulitis - begin empiric vanc KEENA vs CKD - ? d/t cellulitis vs prerenal vs other. Renal sono, FENA, IVF and trend Elevated BNP and edema: ? 2/2 KEENA vs cardiac cause - Echo and will monitor I explained all of this to the patient and she was not confused but had a difficult time understanding the details of our conversation and was fixated on physical therapy.
[2019-12-10 04:18] VITALS: BMI 42.8
[2019-12-10] MEDS: Morphine ER 15 MG TAB PO PRN ×3 (04:27→21:19)
[2019-12-10] MEDS: Ondansetron PF 4 MG/2 ML Vial IVP PRN (04:28)
[2019-12-10] MEDS ORDERED: Lactated Ringer's 1,000 ML IV SCH (04:30)
[2019-12-10] MEDS ORDERED: Vancomycin HCl 1 GM in Premix Bag 1 BAG IVPB SCH (04:30)
[2019-12-10] MEDS ORDERED: Vancomycin HCl 750 MG in Sodium Chloride 0.9% 250 ML 250 ML IVPB SCH (04:30)
[2019-12-10] MEDS ORDERED: HOLD VANCOMYCIN FOR LEVEL >20 FS SCH (04:30)
[2019-12-10] MEDS ORDERED: Vancomycin HCl 250 MG in Sodium Chloride 0.9% 100 ML IVPB SCH (04:30)
[2019-12-10] MEDS ORDERED: Vancomycin HCl 500 MG in Sodium Chloride 0.9% 100 ML IVPB SCH (04:30)
[2019-12-10] MEDS ORDERED: Hydrochlorothiazide 25 MG TAB PO SCH (09:00)
[2019-12-10] MEDS ORDERED: Acetaminophen 500 MG TAB PO PRN (09:30)
[2019-12-10 09:39] LABS: Iron 85 ug/dL (50-170); Iron Binding Capacity, Total 190 mcg/dL (265-497)
--- NOTE | 2019-12-10 11:51 | ULT ---
Exam: Bilateral renal ultrasound HISTORY: Acute kidney insufficiency COMPARISON: None FINDINGS: Right kidney: Hypoechoic mass in the lower pole right kidney measures 1.3 x 1.3 x 1.0 cm. There does appear to be a corresponding lesion on the CT from September 2017. Possibility of a complex cyst is raised No hydronephrosis. Right kidney measurements: 4.3 x 8.3 x 4.4 cm. Left kidney: Normal cortical echotexture. No hydronephrosis Left kidney measurements 3.6 x 7.9 x 4.1 cm. Urinary bladder: Normal mucosa. Prevoid volume is 126 mL. IMPRESSION: 1. Probable complex cyst emanating from the lower pole of the right kidney. 2. No hydronephrosis. Transcribed Date/Time: 12/10/2019 11:55 AM
[2019-12-10] MEDS: Heparin 5,000 UNITS/ML VIAL SC SCH ×3 (12:37→21:23)
[2019-12-10] MEDS: Loperamide HCl 2 MG CAP PO PRN (12:38)
[2019-12-10] MEDS: Nystatin Ointment 15 GM TUBE TOP SCH ×2 (12:39→21:21)
[2019-12-10] MEDS: Zolpidem Tartrate 5 MG TAB PO SCH (21:19)
--- NOTE | 2019-12-11 05:36 | PDOC.FM ---
- Subjective Subjective: Ms. Esteban is doing well this morning. Her legs are still swollen and painful. - Objective MAR Reviewed: Yes Vital Signs & Weight: Vital Signs (12 hours) Temp Pulse Resp BP Pulse Ox 12/11/19 03:58 98.4 F 73 20 98/55 L 95 12/10/19 23:10 98.5 F 79 20 120/81 96 12/10/19 20:00 97 12/10/19 19:49 98.6 F 89 20 124/54 L 97 Weight Admit Weight 56.019 kg Weight 56.019 kg I&O: 12/09/19 12/10/19 12/11/19 06:59 06:59 06:59 Intake Total 440 Balance 440 Result Diagrams: 12/11/19 05:21 12/11/19 05:21 Phys Exam - Physical Examination Constitutional: NAD HEENT: PERRLA, moist MMs Neck: no JVD, supple Respiratory: no wheezing, no rales, no rhonchi, clear to auscultation bilateral Cardiovascular: RRR, no significant murmur, no rub Gastrointestinal: soft, non-tender Musculoskeletal: edema present Significant non-pitting edema bilateral LE Neurological: non-focal, moves all 4 limbs Psychiatric: normal affect, A&O x 3 Skin: normal turgor, cap refill <2 seconds Deviation from normal: Cellulitis BLE Dx/Plan (1) Cellulitis Code(s): L03.90 - CELLULITIS, UNSPECIFIED Status: Acute (2) Leg edema Code(s): R60.0 - LOCALIZED EDEMA Status: Acute (3) Acute kidney injury Code(s): N17.9 - ACUTE KIDNEY FAILURE, UNSPECIFIED Status: Acute (4) Anxiety Code(s): F41.9 - ANXIETY DISORDER, UNSPECIFIED Status: Chronic (5) Chronic pain Code(s): G89.29 - OTHER CHRONIC PAIN Status: Chronic Qualifiers: Chronic pain type: chronic pain syndrome Qualified Code(s): G89.4 - Chronic pain syndrome (6) Diastolic heart failure Code(s): I50.30 - UNSPECIFIED DIASTOLIC (CONGESTIVE) HEART FAILURE Status: Chronic Qualifiers: (7) Dwarfism Code(s): E34.3 - SHORT STATURE DUE TO ENDOCRINE DISORDER Status: Chronic (8) Hypertension Code(s): I10 - ESSENTIAL (PRIMARY) HYPERTENSION Status: Chronic - Plan Plan: Bilateral lower extremity cellulitis - WBC WNL. Failed outpt levaquin. S/p one dose clindamycin. - Start vanc, pharm to dose due to CrCl < 30. Cover for MRSA. LE Edema - ECHO 2/5 EF 60-65%, normal. - likely 2/2 infection. - 1x dose of lasix this morning to monitor for improvement of edema. She reports 17lb weight gain. Normocytic Anemia - Iron studies WNL KEENA vs CKD BL 0.83. Elevated to 1.89. - held home HCTZ - did not start fluids at this time 2/2 edema. - Renal US shows no obstructive process. Will continue to monitor. HTN - held home HCTZ - cont metoprolol Chronic pain - cont home meds Insomnia - cont home meds Diet: HH Fluids: SL VTE: Heparin for CrCl < 30 Code: Full Dispo: > 48 hr stay Addendum - Attending - Attending Attestation Date/Time: 12/11/19 8044 I personally evaluated the patient and discussed the management with the team. I agree with the History, Examination, Assessment and Plan documented above with any addition or exceptions noted below. I suspect KEENA vs CKD. Will d/w renal. Possible pseudocellulitis except patient reported fever. Will continue antibiotics and monitor.
[2019-12-11 05:40] LABS: #Eosinphils 0.3 thou/uL (0.0-0.7); #Lymphocytes 1.8 thou/uL (1.20-3.40); #Monocytes 0.6 thou/uL (0.11-0.59); %Basophils 0.9 % (0.0-1.0); %Eosinophils 5.6 % (0.0-10.0); %Lymphocytes 39.1 % (21.0-51.0); %Monocytes 12.3 % (0.0-10.0); %Neutrophils 42.1 % (42.0-75.0); Hemoglobin 7.8 g/dL (12.0-16.0); Mean Corpuscular HGB CONC 32.1 g/dL (32.0-36.0); Mean Corpuscular Hemoglobin 26.8 pg (27.0-31.0); Mean Corpuscular Volume 83.4 fL (78.0-98.0); Mean Platelet Volume 7.6 fL (7.4-10.4); Platelet Count 167 thou/uL (130-400); RBC Distribution Width 14.5 % (11.5-14.5); White Blood Cell (WBC) Count 4.7 thou/uL (4.8-10.8)
[2019-12-11 06:02] LABS: Anion Gap 10 mmol/L (10-20); BUN (Urea Nitrogen) 37 mg/dL (9.8-20.1); Calc. Creatinine Clearance 29 mL/min (70-130); Calcium 8.4 mg/dL (7.8-10.44); Carbon Dioxide 24 mmol/L (23-31); Chloride 111 mmol/L (98-107); Estimated GFR-MDRD 30; Glucose 96 mg/dL (80-115); Potassium 4.2 mmol/L (3.5-5.1); Sodium 141 mmol/L (136-145)
[2019-12-11 06:13] LABS: Vancomycin, Random 14.3 ug/mL (See Comment)
[2019-12-11] MEDS: Morphine ER 15 MG TAB PO PRN ×3 (06:23→22:16)
[2019-12-11] MEDS ORDERED: Vancomycin HCl 1 GM in Premix Bag 1 BAG IVPB SCH ×2 (07:15→09:00)
[2019-12-11] MEDS: Heparin 5,000 UNITS/ML VIAL SC SCH ×3 (08:46→21:23)
[2019-12-11] MEDS: Nystatin Ointment 15 GM TUBE TOP SCH ×2 (08:50→21:24)
[2019-12-11] MEDS ORDERED: Furosemide 20 MG/2 ML VIAL SLOW IVP SCH (09:15)
[2019-12-11] MEDS: hydrOXYzine 10 MG TAB PO PRN (10:44)
[2019-12-11 11:42] LABS: Phosphorus 3.6 mg/dL (2.3-4.7)
[2019-12-11 12:03] LABS: Thyroid Stimulating Hormone 2.2315 uIU/mL (0.35-4.94); Vitamin D, 25 Hydroxy 4.4 ng/ml (> 30.0)
[2019-12-11] MEDS: Zolpidem Tartrate 5 MG TAB PO SCH (21:23)
[2019-12-12 05:26] LABS: #Eosinphils 0.4 thou/uL (0.0-0.7); #Monocytes 0.6 thou/uL (0.11-0.59); #Neutrophils 2.1 thou/uL (1.40-6.50); %Basophils 0.9 % (0.0-1.0); %Eosinophils 7.4 % (0.0-10.0); %Lymphocytes 38.5 % (21.0-51.0); %Neutrophils 42.2 % (42.0-75.0); Hemoglobin 7.3 g/dL (12.0-16.0); Mean Corpuscular HGB CONC 30.7 g/dL (32.0-36.0); Mean Corpuscular Hemoglobin 25.7 pg (27.0-31.0); Mean Corpuscular Volume 83.7 fL (78.0-98.0); Mean Platelet Volume 7.1 fL (7.4-10.4); Platelet Count 154 thou/uL (130-400); RBC Distribution Width 14.4 % (11.5-14.5); Red Blood Cell (RBC) Count 2.83 mill/uL (4.20-5.40); White Blood Cell (WBC) Count 5.1 thou/uL (4.8-10.8)
[2019-12-12] MEDS: Morphine ER 15 MG TAB PO PRN ×3 (05:29→20:33)
--- NOTE | 2019-12-12 05:49 | PDOC.FM ---
- Subjective Subjective: Ms. Esteban is doing well this morning. She has not noticed that her legs have significantly improved. - Objective MAR Reviewed: Yes Vital Signs & Weight: Vital Signs (12 hours) Temp Pulse Resp BP Pulse Ox 12/11/19 20:00 96 12/11/19 19:00 98.5 F 74 16 110/59 L 96 Weight Admit Weight 56.019 kg Weight 56.019 kg I&O: 12/10/19 12/11/19 12/12/19 06:59 06:59 06:59 Intake Total 440 1040 Balance 440 1040 Result Diagrams: 12/12/19 05:13 12/12/19 05:13 Phys Exam - Physical Examination Constitutional: NAD HEENT: moist MMs, sclera anicteric Neck: supple, full ROM Respiratory: no wheezing, no rales, no rhonchi, clear to auscultation bilateral Cardiovascular: RRR, no significant murmur, no rub Gastrointestinal: soft, non-tender Musculoskeletal: edema present significant non-pitting edema Neurological: non-focal, moves all 4 limbs Psychiatric: normal affect, A&O x 3 Skin: normal turgor Deviation from normal: Legs still erythematous bilaterally Dx/Plan (1) Cellulitis Code(s): L03.90 - CELLULITIS, UNSPECIFIED Status: Acute (2) Leg edema Code(s): R60.0 - LOCALIZED EDEMA Status: Acute (3) Acute kidney injury Code(s): N17.9 - ACUTE KIDNEY FAILURE, UNSPECIFIED Status: Acute (4) Anxiety Code(s): F41.9 - ANXIETY DISORDER, UNSPECIFIED Status: Chronic (5) Chronic pain Code(s): G89.29 - OTHER CHRONIC PAIN Status: Chronic Qualifiers: Chronic pain type: chronic pain syndrome Qualified Code(s): G89.4 - Chronic pain syndrome (6) Diastolic heart failure Code(s): I50.30 - UNSPECIFIED DIASTOLIC (CONGESTIVE) HEART FAILURE Status: Chronic Qualifiers: (7) Dwarfism Code(s): E34.3 - SHORT STATURE DUE TO ENDOCRINE DISORDER Status: Chronic (8) Hypertension Code(s): I10 - ESSENTIAL (PRIMARY) HYPERTENSION Status: Chronic - Plan Plan: Bilateral lower extremity cellulitis vs dermatitis - On Vancomycin since 12/10. Pharm to dose due to CrCl < 30. Cover for MRSA. - Not showing significant signs of improvement. She has not had a fever or white count since admission. Infection may not be the cause of her edema and erythema. LE Edema - ECHO 2/5 EF 60-65%, normal. - likely 2/2 infection. - s/p 20mg lasix yesterday. However I/O was not documented, therefore unclear amount of diuresis. - Strict I/Os ordered. KEENA vs CKD - Renal US showed no obstructive uropathy. Cr elevated at 1.89 > 1.69. - Vitamin D low 4.4 - TSH WNL 2.2 - PTH high 212.8 Normocytic Anemia - Iron studies WNL HTN - held home HCTZ - cont metoprolol Chronic pain - cont home meds Insomnia - cont home meds Diet: HH Fluids: SL VTE: Heparin for CrCl < 30 Code: Full Dispo: > 48 hr stay Addendum - Attending - Attending Attestation Date/Time: 12/12/19 2998 I personally evaluated the patient and discussed the management with the team. I agree with the History, Examination, Assessment and Plan documented above with any addition or exceptions noted below. No f/c. No n/v. Improved erythema and slight swelling on exam. Plan for renal consultation.
[2019-12-12 05:50] LABS: Anion Gap 9 mmol/L (10-20); BUN (Urea Nitrogen) 37 mg/dL (9.8-20.1); Calc. Creatinine Clearance 30 mL/min (70-130); Calcium 8.3 mg/dL (7.8-10.44); Carbon Dioxide 23 mmol/L (23-31); Chloride 111 mmol/L (98-107); Estimated GFR-MDRD 31; Glucose 99 mg/dL (80-115); Potassium 3.8 mmol/L (3.5-5.1); Sodium 139 mmol/L (136-145)
[2019-12-12] MEDS: Heparin 5,000 UNITS/ML VIAL SC SCH ×3 (08:44→20:37)
[2019-12-12] MEDS: Loperamide HCl 2 MG CAP PO PRN ×2 (08:49→18:38)
[2019-12-12] MEDS: Nystatin Ointment 15 GM TUBE TOP SCH ×3 (08:49→20:42)
[2019-12-12 08:58] LABS: Bilirubin Negative (Negative); Blood, Urine Negative (Negative); Clarity Clear (Clear); Glucose, Urine (Dipstick) Normal (Negative); Leukocyte 25 Leu/uL (Negative); Nitrite Negative (Negative); Protein, Urine (Dipstick) Negative (Neg-Trace); RBC/HPF 0-3 HPF (0-3); Squamous Epithelial 0-3 HPF (0-3); Urobilinogen Normal mg/dL (Less than 2)
[2019-12-12 08:59] LABS: Bacteria/HPF 1+ HPF (None Seen)
[2019-12-12 11:37] LABS: Vancomycin, Random 24.9 ug/mL (See Comment)
[2019-12-12] MEDS ORDERED: Vancomycin HCl 1 GM in Premix Bag 1 BAG IVPB SCH (12:00)
[2019-12-12] MEDS: Zolpidem Tartrate 5 MG TAB PO SCH (20:34)
--- NOTE | 2019-12-13 01:03 | CON ---
DATE OF CONSULTATION: 12/12/2019 CONSULTING PHYSICIAN: Dr. Luna. REASON FOR CONSULTATION: Acute kidney injury versus chronic kidney disease. REASON FOR ADMISSION: Edema. HISTORY OF PRESENT ILLNESS: This is a 64-year-old lady with history of dwarfism, osteoarthritis, hypertension, came to the hospital with leg swelling, redness, weight gain, and was treated for cellulitis. She was also given some Lasix, but her creatinine was elevated. Her last creatinine before admission on the record was 0.8 in 02/2018, and she had a creatinine 1.8 on admission and today is 1.68. Since the creatinine remains elevated, Nephrology was consulted to rule out KEENA versus CKD. The patient denies any complaints except for leg swelling and redness and weight gain and discomfort from that. PAST MEDICAL HISTORY: Positive for dwarfism, hyperlipidemia, hypertension, esophageal stricture, osteoarthritis, chronic pain, muscle weakness. PAST SURGICAL HISTORY: Left knee surgery, multiple leg surgery. HOME MEDICATIONS: Metoprolol, zolpidem, hydrochlorothiazide, pantoprazole, morphine, nystatin, hydroxyzine. ALLERGIES: NO KNOWN DRUG ALLERGIES. SOCIAL HISTORY: No smoking, alcohol, or illicit drugs. FAMILY HISTORY: No history of kidney disease. REVIEW OF SYSTEMS: CONSTITUTIONAL: Negative for weight loss or gain, ability to conduct usual activities. SKIN: Negative for rash, itching. EYES: Negative for double vision, pain. ENT/MOUTH: Negative for nose bleeding, neck stiffness, pain, tenderness. CARDIOVASCULAR: Negative for palpitations, dyspnea on exertion, orthopnea. RESPIRATORY: Negative for shortness of breath, wheezing, cough, hemoptysis, fever or night sweats. GASTROINTESTINAL: Negative for poor appetite, abdominal pain, heartburn, nausea, vomiting, constipation, or diarrhea. GENITOURINARY: Negative for urgency, frequency, dysuria, nocturia. MUSCULOSKELETAL: Negative for pain, swelling. NEUROLOGIC/PSYCHIATRIC: Negative for anxiety, depression. ALLERGY/IMMUNOLOGIC: Negative for skin rash, bleeding tendency. reason. PHYSICAL EXAMINATION: GENERAL: This is a dwarf female, in no apparent distress. VITAL SIGNS: Temperature 98.5, pulse 74, respiratory rate 14, blood pressure 107/67. HEENT: Atraumatic, normocephalic. NECK: Supple. CV: S1, S2. Regular rate and rhythm. RESPIRATORY: Clear. GASTROINTESTINAL: Abdomen is soft MUSCULOSKELETAL: 1+ edema. DERMATOLOGIC: Cellulitic rash on bilateral lower extremities. NEUROLOGIC: Alert and awake, moving all extremities. LABORATORY DATA: WBCs 5.1, hemoglobin is 7.3, potassium 3.8, BUN is 37, and creatinine is 1.68. PTH is . Renal ultrasound with a complex cyst, no hydronephrosis, and bilateral small kidneys, but given normal for her dwarfism. ASSESSMENT AND PLAN: 1. Acute kidney injury on chronic kidney disease stage 3 versus chronic kidney disease stage 3. Plan is to monitor renal function, most likely from cellulitis, continue supportive care including antibiotics and we will follow. Avoid nephrotoxins and renally dose the medications. 2. Anemia, normocytic. We will follow. Iron level is adequate. 3. Vitamin D deficiency secondary to hyperparathyroidism. Continue vitamin D supplementation. 4. Hyperchloremia. 5. Edema. We will monitor for now. 6. History of hypertension, stable. 7. We will monitor renal function for now. We will check urine eosinophils. Avoid nephrotoxins. Continue antibiotics and we will follow. Thank you for the consult. Job ID: [id number]
[2019-12-13] MEDS: Morphine ER 15 MG TAB PO PRN ×3 (03:55→21:00)
--- NOTE | 2019-12-13 05:09 | PDOC.FM ---
- Subjective Subjective: Ms. Esteban is doing better this morning. She feels that her legs are less swollen and painful. She denies chest pain, shortness of breath, nausea, vomiting, diearrhea. - Objective MAR Reviewed: Yes Vital Signs & Weight: Vital Signs (12 hours) Temp Pulse Resp BP Pulse Ox 12/12/19 21:03 99 12/12/19 19:00 98.7 F 81 16 107/67 99 Weight Admit Weight 56.019 kg Weight 56.019 kg I&O: 12/11/19 12/12/19 12/13/19 06:59 06:59 06:59 Intake Total 440 1400 885 Output Total 600 Balance 440 1400 285 Result Diagrams: 12/13/19 06:51 12/13/19 06:51 Phys Exam - Physical Examination Constitutional: NAD HEENT: moist MMs, sclera anicteric Neck: no JVD, supple Respiratory: no wheezing, no rales, no rhonchi, clear to auscultation bilateral Cardiovascular: RRR, no significant murmur, no rub Gastrointestinal: soft, non-tender Musculoskeletal: edema present Significant non-pitting edema present. Slightly improved. Neurological: non-focal, moves all 4 limbs Psychiatric: normal affect, A&O x 3 Skin: normal turgor, cap refill <2 seconds Deviation from normal: Bilateral lower extremity erythema, slightly improved. Dx/Plan (1) Cellulitis Code(s): L03.90 - CELLULITIS, UNSPECIFIED Status: Acute (2) Leg edema Code(s): R60.0 - LOCALIZED EDEMA Status: Acute (3) Acute kidney injury Code(s): N17.9 - ACUTE KIDNEY FAILURE, UNSPECIFIED Status: Acute (4) Anxiety Code(s): F41.9 - ANXIETY DISORDER, UNSPECIFIED Status: Chronic (5) Chronic pain Code(s): G89.29 - OTHER CHRONIC PAIN Status: Chronic Qualifiers: Chronic pain type: chronic pain syndrome Qualified Code(s): G89.4 - Chronic pain syndrome (6) Diastolic heart failure Code(s): I50.30 - UNSPECIFIED DIASTOLIC (CONGESTIVE) HEART FAILURE Status: Chronic Qualifiers: (7) Dwarfism Code(s): E34.3 - SHORT STATURE DUE TO ENDOCRINE DISORDER Status: Chronic (8) Hypertension Code(s): I10 - ESSENTIAL (PRIMARY) HYPERTENSION Status: Chronic - Plan Plan: Bilateral lower extremity cellulitis vs dermatitis - On Vancomycin since 12/10. Pharm to dose due to CrCl < 30. Cover for MRSA. - Slight improvement yesterday and overnight. Will continue antibiotics. LE Edema - ECHO 12/10 EF 60-65%, normal. - likely 2/2 infection. - s/p 20mg lasix 12/11. However I/O was not documented, therefore unclear amount of diuresis. - Strict I/Os ordered. KEENA vs CKD III - Renal US showed no obstructive uropathy. Cr elevated at 1.89 > 1.69. - Vitamin D low 4.4 - TSH WNL 2.2 - PTH high 212.8 - No urine eosinophils. - Nephrology consulted yesterday, recommended continuing antibiotics and avoiding nephrotoxic agents. Appreciate recommendations. Normocytic Anemia - Iron studies WNL HTN - held home HCTZ - cont metoprolol Chronic pain - cont home meds Insomnia - cont home meds Diet: HH Fluids: SL VTE: Heparin for CrCl < 30 Code: Full Dispo: > 48 hr stay Addendum - Attending - Attending Attestation Date/Time: 12/13/19 4818 I personally evaluated the patient and discussed the management with Dr. Ray. I agree with the History, Examination, Assessment and Plan documented above with any addition or exceptions noted below. Again improved erythema. Complete today of vanc and transition to oral tomorrow after discussing with Dr. Peres. He feels acute on chronic KD. Wrap legs for comfort.
[2019-12-13 07:04] LABS: #Eosinphils 0.3 thou/uL (0.0-0.7); #Lymphocytes 1.8 thou/uL (1.20-3.40); #Monocytes 0.6 thou/uL (0.11-0.59); %Basophils 0.8 % (0.0-1.0); %Lymphocytes 37.6 % (21.0-51.0); %Monocytes 11.7 % (0.0-10.0); %Neutrophils 42.9 % (42.0-75.0); Hemoglobin 7.8 g/dL (12.0-16.0); Mean Corpuscular HGB CONC 33.4 g/dL (32.0-36.0); Mean Corpuscular Volume 83.7 fL (78.0-98.0); Mean Platelet Volume 7.4 fL (7.4-10.4); Platelet Count 155 thou/uL (130-400); RBC Distribution Width 14.5 % (11.5-14.5); Red Blood Cell (RBC) Count 2.77 mill/uL (4.20-5.40); White Blood Cell (WBC) Count 4.7 thou/uL (4.8-10.8)
[2019-12-13 07:27] LABS: Anion Gap 9 mmol/L (10-20); BUN (Urea Nitrogen) 32 mg/dL (9.8-20.1); Calc. Creatinine Clearance 34 mL/min (70-130); Carbon Dioxide 23 mmol/L (23-31); Chloride 111 mmol/L (98-107); Estimated GFR-MDRD 37; Potassium 3.8 mmol/L (3.5-5.1); Sodium 139 mmol/L (136-145)
[2019-12-13 07:28] LABS: Calcium 8.1 mg/dL (7.8-10.44); Glucose 89 mg/dL (80-115)
[2019-12-13] MEDS: Nystatin Ointment 15 GM TUBE TOP SCH ×2 (08:21→21:03)
[2019-12-13] MEDS: hydrOXYzine 10 MG TAB PO PRN (08:28)
[2019-12-13] MEDS: Loperamide HCl 2 MG CAP PO PRN ×2 (08:28→21:00)
[2019-12-13] MEDS: Heparin 5,000 UNITS/ML VIAL SC SCH ×3 (08:29→21:01)
[2019-12-13 11:25] LABS: Vancomycin, Random 16.7 ug/mL (See Comment)
[2019-12-13] MEDS ORDERED: Vancomycin HCl 750 MG in Sodium Chloride 0.9% 250 ML 250 ML IVPB SCH (12:00)
--- NOTE | 2019-12-13 15:12 | PRG ---
DATE OF SERVICE: 12/13/2019 SUBJECTIVE: Patient was seen and examined at bedside and overnight events noted. Patient denies any shortness of breath or chest pain or palpitation. No history of nausea or vomiting or diarrhea or fever or chills or cramps. OBJECTIVE: GENERAL: This is a well-built female, in no apparent distress. VITAL SIGNS: Temperature 98.7. Heart rate 82. Respiratory rate 19. Blood pressure 150/85. HEENT: Atraumatic, normocephalic. Oral mucosa is moist. NECK: Supple. CARDIOVASCULAR: S1, S2 heard. Rate and rhythm regular. RESPIRATORY: Clear to auscultation. GASTROINTESTINAL: Abdomen is soft. MUSCULOSKELETAL: No tenderness. No edema. DERMATOLOGIC: No skin rash. NEUROLOGIC: Alert and awake and oriented x3. No focal neurologic deficits. Moving all the extremities. PSYCHIATRIC: Mood and affect normal. LABORATORY DATA: Potassium 3.8, BUN is 32, and creatinine is 1.41. ASSESSMENT AND PLAN: 1. Acute kidney injury on chronic kidney disease, stage 3, most likely it is from cellulitis and infection. Continue antibiotics and supportive care. Not able to have IV fluids due to edema. 2. Anemia. 3. Vitamin D deficiency. 4. Hyperchloremia. 5. History of hypertension, stable. Monitor renal function. Avoid nephrotoxins. We would recommend continue IV antibiotics one more day. We will follow. Job ID: [id number]
[2019-12-13] MEDS: Zolpidem Tartrate 5 MG TAB PO SCH (21:00)
[2019-12-14] MEDS: Morphine ER 15 MG TAB PO PRN ×3 (05:28→21:07)
--- NOTE | 2019-12-14 05:30 | PDOC.FM ---
- Subjective Subjective: Ms. Esteban is doing well this morning. She feels that her legs have improved in redness and tenderness. However she is still concerned by the swelling. In regards to her hair loss, she states that it began about 2 weeks prior to admission. We discussed telogen effluvium and stress responses, however I recommended she follow up with her PCP for further workup once discharged. She is still having diarrhea/loose stools. Denies nausea or vomiting or abdominal pain. She denies fever or chills. - Objective Vital Signs & Weight: Vital Signs (12 hours) Temp Pulse Resp BP Pulse Ox 12/13/19 21:16 100 12/13/19 20:18 98.5 F 78 18 119/76 100 Weight Admit Weight 56.019 kg Weight 56.019 kg I&O: 12/12/19 12/13/19 12/14/19 06:59 06:59 06:59 Intake Total 1400 1345 1050 Output Total 600 600 Balance 1400 745 450 Result Diagrams: 12/13/19 06:51 12/14/19 06:03 Phys Exam - Physical Examination Constitutional: NAD HEENT: moist MMs, sclera anicteric Neck: supple, full ROM Respiratory: no wheezing, no rales, no rhonchi, clear to auscultation bilateral Cardiovascular: RRR, no significant murmur, no rub Gastrointestinal: soft, non-tender Musculoskeletal: edema present Neurological: non-focal, moves all 4 limbs Psychiatric: normal affect, A&O x 3 Skin: normal turgor, cap refill <2 seconds Deviation from normal: Erythema and rubor improving. Dx/Plan (1) Cellulitis Code(s): L03.90 - CELLULITIS, UNSPECIFIED Status: Acute (2) Leg edema Code(s): R60.0 - LOCALIZED EDEMA Status: Acute (3) Acute kidney injury Code(s): N17.9 - ACUTE KIDNEY FAILURE, UNSPECIFIED Status: Acute (4) Anxiety Code(s): F41.9 - ANXIETY DISORDER, UNSPECIFIED Status: Chronic (5) Chronic pain Code(s): G89.29 - OTHER CHRONIC PAIN Status: Chronic Qualifiers: Chronic pain type: chronic pain syndrome Qualified Code(s): G89.4 - Chronic pain syndrome (6) Diastolic heart failure Code(s): I50.30 - UNSPECIFIED DIASTOLIC (CONGESTIVE) HEART FAILURE Status: Chronic Qualifiers: (7) 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 - Will consider d/c, pending clinical course as overall symptoms are improving. [X] Vancomycin 12/10 - 12/14 LE Edema - ECHO 12/10 EF 60-65%, normal. - likely 2/2 infection. - Strict I/Os ordered. KEENA vs CKD III - Renal US showed no obstructive uropathy. Cr elevated at - Vitamin D low 4.4, TSH WNL 2.2, PTH high 212.8 - No urine eosinophils. - Nephrology consulted, recommended continuing antibiotics and avoiding nephrotoxic agents. Appreciate recommendations. Normocytic Anemia - Iron studies WNL HTN - held home HCTZ - cont metoprolol Chronic pain - cont home meds Insomnia - cont home meds Diet: HH Fluids: SL VTE: Heparin for CrCl < 30 Code: Full Dispo: > 48 hr stay Addendum - Attending - Attending Attestation Date/Time: 12/14/19 1753 I personally evaluated the patient and discussed the management with the team. I agree with the History, Examination, Assessment and Plan documented above with any addition or exceptions noted below. Ms. Esteban erythema continues to improve and I believe her edema is marginally improved as well. We will switch her to oral antibiotics and I believe she could be discharged today with outpatient follow up vs tomorrow. Upon suggesting this she felt that we were brushing off her complaints. She is very focused on the swelling and concerned that it will affect other organs. Each day I have answered all of her questions, which are approximately the same , and discussed her lab results and the plan with her. We will keep her another day and monitor the erythema with the change in antibiotics and consider discharging her afterward. She abruptly terminated our conversation. I emphasized that I wanted to take all of her complaints and concerns seriously , as I have spent a significant amount of time every day making sure questions are answered and concerns are addressed, and told her to contact me or my team if she had any additional concerns. She voiced understanding.
[2019-12-14 06:45] LABS: Anion Gap 11 mmol/L (10-20); BUN (Urea Nitrogen) 28 mg/dL (9.8-20.1); Calc. Creatinine Clearance 40 mL/min (70-130); Calcium 8.1 mg/dL (7.8-10.44); Carbon Dioxide 24 mmol/L (23-31); Chloride 110 mmol/L (98-107); Estimated GFR-MDRD 43; Glucose 87 mg/dL (80-115); Potassium 3.7 mmol/L (3.5-5.1); Sodium 141 mmol/L (136-145)
[2019-12-14] MEDS: Doxycycline 100 MG CAP PO SCH ×2 (08:08→21:06)
[2019-12-14] MEDS: Ondansetron PF 4 MG/2 ML Vial IVP PRN (08:08)
[2019-12-14] MEDS: hydrOXYzine 10 MG TAB PO PRN (08:09)
[2019-12-14] MEDS: Heparin 5,000 UNITS/ML VIAL SC SCH ×3 (08:20→21:10)
[2019-12-14] MEDS: Nystatin Ointment 15 GM TUBE TOP SCH ×2 (08:21→21:09)
--- NOTE | 2019-12-14 13:57 | PRG ---
DATE OF SERVICE: 12/14/2019 SUBJECTIVE: Patient was seen and examined at bedside and overnight events noted. Patient denies any shortness of breath or chest pain or palpitation. No history of nausea or vomiting or diarrhea or fever or chills or cramps. OBJECTIVE: GENERAL: This is a dwarf female, in no apparent distress. VITAL SIGNS: Temperature heart rate 76, respiratory rate 14, blood pressure 119/76. HEENT: Atraumatic, normocephalic. Oral mucosa is moist NECK: Supple. CARDIOVASCULAR: S1, S2 heard. Rate and rhythm regular. RESPIRATORY: Clear to auscultation. GASTROINTESTINAL: Abdomen is soft. MUSCULOSKELETAL: No tenderness. No edema. DERMATOLOGIC: No skin rash. NEUROLOGIC: Alert and awake and oriented X3. No focal neurologic deficits. Moving all the extremities. PSYCHIATRIC: Mood and affect normal. LABORATORY DATA: Potassium is 3.7, BUN is 28, and creatinine is 1.2. ASSESSMENT AND PLAN: 1. Acute kidney injury on chronic kidney disease stage 3, most likely secondary to . Continue antibiotics. Renal function is better. Okay with changing to oral antibiotics. 2. Anemia, normocytic with iron deficiency. Continue supplementation. 3. Vitamin D deficiency. Continue supplementation. 4. Hyperchloremia. 5. History of hypertension. 6. Secondary hyperparathyroidism. 7. Dwarfism. 8. Skin rash and possible cellulitis. 9. Renal function, much better, avoid nephrotoxins. Continue supportive care including antibiotics. We will follow. Job ID: [id number]
--- NOTE | 2019-12-14 14:44 | ULT ---
BILATERAL LOWER EXTREMITY VENOUS DUPLEX EXAM: HISTORY: Leg pain and swelling. Wound care with compression dressings preclude evaluation of the calf region. TECHNIQUE: Real-time color Doppler evaluation of the right and left lower extremities was performed from the delfin in to the calf. This includes evaluation of the common femoral, superficial femoral, profunda femoral , saphenous and popliteal veins. FINDINGS: There is normal compressibility and augmentation of both legs. FINDINGS: No evidence of deep venous thrombosis of either lower extremity. POS: FITZ
[2019-12-14] MEDS: Zolpidem Tartrate 5 MG TAB PO SCH (21:06)
[2019-12-14] MEDS: Loperamide HCl 2 MG CAP PO PRN (21:16)
[2019-12-14 21:33] VITALS: TEMP 98.5
[2019-12-15] MEDS: Morphine ER 15 MG TAB PO PRN ×2 (04:29→12:23)
[2019-12-15 05:58] LABS: Anion Gap 9 mmol/L (10-20); BUN (Urea Nitrogen) 26 mg/dL (9.8-20.1); Calc. Creatinine Clearance 38 mL/min (70-130); Calcium 8.1 mg/dL (7.8-10.44); Carbon Dioxide 25 mmol/L (23-31); Chloride 110 mmol/L (98-107); Estimated GFR-MDRD 41; Glucose 93 mg/dL (80-115); Potassium 3.8 mmol/L (3.5-5.1); Sodium 140 mmol/L (136-145)
--- NOTE | 2019-12-15 06:06 | PDOC.FM ---
- Subjective Subjective: Pt is doing well today. Her erythema is regressing. She remains with LE edema. Otherwise she has no complaints. She follows up with Dr. Perez. - Objective Vital Signs & Weight: Vital Signs (12 hours) Temp Pulse Resp BP Pulse Ox 12/14/19 20:00 98.5 F 81 18 117/55 L 96 Weight Admit Weight 56.019 kg Weight 56.019 kg I&O: 12/13/19 12/14/19 12/15/19 06:59 06:59 06:59 Intake Total 1345 1450 Output Total 600 600 Balance 745 850 Result Diagrams: 12/13/19 06:51 12/15/19 05:17 Phys Exam - Physical Examination Constitutional: NAD HEENT: PERRLA, moist MMs Respiratory: no wheezing, no rales, clear to auscultation bilateral Cardiovascular: RRR, no significant murmur Gastrointestinal: soft, non-tender, no distention Musculoskeletal: pulses present non-pitting edema in LE up to thighs Dx/Plan (1) Leg edema Code(s): R60.0 - LOCALIZED EDEMA Status: Acute (2) Cellulitis Code(s): L03.90 - CELLULITIS, UNSPECIFIED Status: Acute (3) Chronic pain Code(s): G89.29 - OTHER CHRONIC PAIN Status: Chronic Qualifiers: Chronic pain type: chronic pain syndrome Qualified Code(s): G89.4 - Chronic pain syndrome (4) Dwarfism Code(s): E34.3 - SHORT STATURE DUE TO ENDOCRINE DISORDER Status: Chronic (5) GERD (gastroesophageal reflux disease) Code(s): K21.9 - GASTRO-ESOPHAGEAL REFLUX DISEASE WITHOUT ESOPHAGITIS Status: Chronic (6) Hypertension Code(s): I10 - ESSENTIAL (PRIMARY) HYPERTENSION Status: Chronic - Plan Plan: Bilateral lower extremity cellulitis vs dermatitis - Transition to PO Doxycycline 100mg BID x 14 days. - Will consider d/c, pending clinical course as overall symptoms are improving. [X] Vancomycin 2/ - 12/14 LE Edema - ECHO / EF 60-65%, normal. - likely 2/2 infection. - Strict I/Os ordered. KEENA vs CKD III - Renal US showed no obstructive uropathy. Cr elevated at - Vitamin D low 4.4, TSH WNL 2.2, PTH high 212.8 - No urine eosinophils. - Nephrology consulted, recommended continuing antibiotics and avoiding nephrotoxic agents. Appreciate recommendations. - Needs close follow up with Dr. Perez to follow renal disease. Normocytic Anemia - Iron studies WNL - Need to discuss if she had recent colonoscopy. She will need to follow up outpt for continued work up. Normal ferritin, Iron; decreased TIBC. HTN - held home HCTZ - cont metoprolol Chronic pain - cont home meds Insomnia - cont home meds Diet: HH Fluids: SL VTE: Heparin for CrCl < 30 Code: Full Dispo: > 48 hr stay Addendum - Attending - Attending Attestation Date/Time: 12/15/191801 I personally evaluated the patient and discussed the management with Dr. Luna I agree with the History, Examination, Assessment and Plan documented above with any addition or exceptions noted below. Patient was concerned about her multiple home health services and how they would be arranged. I explained to her in great detail that our CM worker would submit the paperwork prior to her discharge today but it may take a few days for them to come to her house. She expressed concern about transportation home as one of her caregivers recently and her other caregiver has children. I asked the patient if she was concerned for her safety at home as she now has less help and offered to arrange SNF placement but she declined. patient was then concerned about transportation home as her ride had very specific times she could come to the hospital. I asked her to call her ride and we would make sure she was ready for discharge when her ride arrived. She expressed understanding. Approximately 35 minutes spent in the room with the patient.
[2019-12-15 07:47] VITALS: BP 109/69
[2019-12-15] MEDS: Doxycycline 100 MG CAP PO SCH (08:09)
[2019-12-15] MEDS: Heparin 5,000 UNITS/ML VIAL SC SCH ×2 (08:09→15:10)
[2019-12-15] MEDS: Nystatin Ointment 15 GM TUBE TOP SCH (08:22)
--- NOTE | 2019-12-15 11:44 | PRG ---
DATE OF SERVICE: 12/15/2019 SUBJECTIVE: This is a 64-year-old female, being seen for acute kidney injury. The patient denied nausea, vomiting, or chest pain. OBJECTIVE: GENERAL: The patient is awake, alert. VITAL SIGNS: Afebrile, pulse 78, breathing 16, blood pressure was 109/69. GENERAL APPEARANCE AND MENTAL STATUS: Fair. HEAD/NECK: Normocephalic. Atraumatic. EYES: EOMI. No deformity. EARS: Clear. No ulcers. NOSE: Intact. No lesions. MOUTH: Clear. No discharge. THROAT: Clear. No exudate. LUNGS: Clear. No crackles. CARDIAC: S1, S2. No rub. ABDOMEN: Benign. Bowel sounds positive. GENITALIA/RECTUM: Schaefer absent. BACK/EXTREMITIES: Edema 0+. NEUROLOGICAL: Alert and motor intact. SKIN: LYMPHATICS: LABORATORY DATA: Labs show hemoglobin 7.8, creatinine 1.3. ASSESSMENT AND PLAN: 1. Acute kidney injury on chronic kidney disease stage 3, stable. 2. Hypertension, stable. 3. Anemia. Recommend Epogen therapy. 4. Low vitamin D level. Recommend replacement. No indication for dialysis. 5. Edema. Continue aggressive diuresis. Job ID: [id number]
--- NOTE | 2019-12-16 02:06 | DIS ---
DATE OF ADMISSION: 12/10/2019 DATE OF DISCHARGE: 12/15/2019 RESIDENT: Kwasi Luna DO ADMITTING ATTENDING: Binh Esquivel MD DISCHARGE ATTENDING: Jerel Peters MD CONSULTS: Nephrology, Miguel Peres MD PROCEDURES PERFORMED: 1. Renal ultrasound on 12/10/2019 revealed probable complex cyst emanating from the lower pole of the right kidney. No hydronephrosis. Right kidney measures 4.3 x 8.3 x 4.4 cm. Left kidney measures 3.6 x 7.9 x 4.1 cm. 2. Echocardiogram on 12/10/2019, revealed ejection fraction of 60% to 65%. Normal right ventricular size and function. 3. Venogram on 12/14/2019 revealed no evidence of DVT of either extremity. PRIMARY DIAGNOSES: 1. Lower extremity edema. 2. Cellulitis. 3. Normocytic anemia. 4. Acute kidney injury. 5. Chronic kidney disease 3. SECONDARY DIAGNOSES: 1. Hypertension. 2. Gastroesophageal reflux disease. 3. Dwarfism. 4. Chronic pain. 5. Insomnia. DISCHARGE MEDICATIONS: 1. Zolpidem 10 mg p.o. at bedtime. 2. Metoprolol 100 mg p.o. q.a.m. 3. Protonix 40 mg p.o. q.p.m. 4. Morphine extended release 15 mg p.o. t.i.d. p.r.n. pain. 5. Nystatin ointment topical b.i.d. 6. Atarax 10 mg p.o. t.i.d. p.r.n. anxiety. 7. Doxycycline 100 mg p.o. b.i.d. 8. Loperamide 2 mg p.o. p.r.n. GI upset. 9. Vitamin D3 of 1000 units p.o. daily. 10. Ferrous sulfate 325 mg p.o. q.a.m. with meals. DISCONTINUED MEDICATIONS: Hydrochlorothiazide 25 mg p.o. daily. HISTORY OF PRESENT ILLNESS/HOSPITAL COURSE: Shalonda Esteban is a 64-year-old female with past medical history significant for dwarfism requiring multiple leg surgeries, osteoarthritis, chronic pain, hypertension, who presented with a 3-week history of cellulitis and failed outpatient treatment on Levaquin. She had been seen by her primary care physician one week prior. She finished the course of antibiotics on the day of admission. She also states she had increasing lower extremity edema, which is abnormal for her. She was having difficulty ambulating and pain with exertion. At baseline, she was able to participate in most daily activities but due to the infection, she had decreased movement. Of note, she had just recently lost her caregiver three weeks prior. On admission, her white blood cell count was within normal limits, but she was found to be anemic. She was also found to have elevated creatinine at 1.89, which resolved to 1.3 by the time of discharge. She likely has chronic kidney disease. Her hydrochlorothiazide was discontinued. Nephrology also believes that this could be secondary to the infection. In regard to her infection, she was initially started on vancomycin. Her infection began healing well and due to this, she was switched over to p.o. doxycycline. She continued to tolerate p.o. doxycycline and received five days of antibiotics before being discharged. She will need a total course of 14 days of treatment, which will require another 9 days of p.o. doxycycline. In regard to her KEENA, she likely now has chronic kidney disease stage 3. She will need to follow up in the outpatient setting for continued kidney function evaluation. At this time, she will be discontinued from hydrochlorothiazide and other nephrotoxic agents. In regard to her anemia, she initially presented with hemoglobin of 9.3 but by the time of discharge, she was 7.8. It was normocytic anemia with MCV of 83.7. White blood cell count was 4.7, platelets 155. She states that she has had a colonoscopy in the past, but she is unsure how long ago it was and what the results were. She had an iron of 85, ferritin of 128.92, and then a low TIBC of 190. She will need further stratification in the outpatient setting. This could also be a mixed picture anemia. Will likely need B12 and folate to be performed in the outpatient setting, as well as following up on her most recent colonoscopy. Otherwise the patient did have lower extremity edema which was beginning to respond well to wrapping and compression therapy. She will need assistance in the outpatient setting as she is unable to properly wrap her leg. She currently has home health, so we will add on wound care for her. Otherwise, the patient tolerated therapy well. She understood the plan on discharge and will follow up with her primary care provider, Dr. Perez, this week. DISPOSITION: Stable. DISCHARGE INSTRUCTIONS: 1. Location: [facility]. 2. Diet: Heart healthy. 3. Activity: No restrictions. 4. Followup: Follow up with Dr. Perez within 3 days. This patient's discharge preparation required greater than 30 minutes of discussion. Job ID: [id number]
[2019-12-16] MEDS ORDERED: Ferrous Sulfate 325 MG TAB PO SCH (08:00)
--- NOTE | 2019-12-17 22:24 | PQF ---
ALEXANDREA JACOBSEN MARK yudelka [id number] CLINICAL DOCUMENTATION CLARIFICATION FORM: POST DISCHARGE Addendum to original discharge summary date: ____ Late entry note date: __ DATE:12/17/2019 ATTN: LYUBOV BROWN Please exercise your independent, professional judgment in responding to the clarification form. Clinical indicators are provided on the bottom of this form for your review Please check appropriate box(s): [ ] Bilateral lower extremity cellulitis is a complication of recent surgery [ x ] Bilateral lower extremity cellulitis is not a complication of recent surgery [ ] Other diagnosis [ ] Unable to determine In addition, please specify: Present on Admission (POA): [ x] Yes [ ] No [ ] Unable to determine CLINICAL INDICATORS - SIGNS / SYMPTOMS / LABS PMH significant for dwarfism requiring multiple leg surgeries -Documented in H& P On 12/10 by Kwasi Han DO PSHx L knee replacement , Multiple procedures on legs-Documented in H&P On by Kwasi Han DO Bilateral lower extremity cellulitis,WBC WNL, Failed out Levaquin. S/P one dose clindamycin-Documented in Family medicine progress note RISK [employer]ORS PSHx L knee replacement , Multiple procedures on legs-Documented in H&P On by Kwasi Han DO TREATMENT: Start Vanc, Pharm to dose due to CrCL <30. Cover for MRSA On vancomycin since 12/10, Slight improvement yesterday and overnight . Will continue antibiotics-Documented in Family medicine PN on 12/13 by Ivis Ray MD (This form is maintained as a part of the permanent medical record) 2014 [employer]. All Rights Reserved [email or web address] [phone] KRYSTINA
--- NOTE | 2019-12-20 12:02 | EKG ---
Test Reason : Blood Pressure : / mmHG Vent. Rate : 082 BPM Atrial Rate : 082 BPM P-R Int : 178 ms QRS Dur : 076 ms QT Int : 388 ms P-R-T Axes : 048 026 051 degrees QTc Int : 453 ms Normal sinus rhythm Normal ECG Confirmed by GIOVANNA HANNON ([id number]), photographic editor DONNY SANCHEZ ([id number]) on 12/20/2019 12:01:59 PM Referred By: Confirmed By:GIOVANNA HANNON
== END 2019-12-15 16:31 | disposition home health service (06) | DRG 603 ==
LOC: ERS 22:34 → T4-A 12-10 00:42
PROVIDERS: ADMIT Family Medicine; ATTEND Family Medicine
DX: L03.116 Cellulitis of left lower limb (principal); N17.9 Acute kidney failure, unspecified; I13.0 Hypertensive heart and chronic kidney disease with heart failure and stage 1 through stage 4 chronic kidney disease, or unspecified chronic kidney disease; I50.32 Chronic diastolic (congestive) heart failure; N18.3 Chronic kidney disease, stage 3 (moderate); E78.5 Hyperlipidemia, unspecified; Z96.652 Presence of left artificial knee joint; G89.29 Other chronic pain; E34.3 Short stature due to endocrine disorder; K21.9 Gastro-esophageal reflux disease without esophagitis; G47.00 Insomnia, unspecified; L03.115 Cellulitis of right lower limb; F41.9 Anxiety disorder, unspecified; E21.3 Hyperparathyroidism, unspecified; E87.8 Other disorders of electrolyte and fluid balance, not elsewhere classified; E55.9 Vitamin D deficiency, unspecified; D50.9 Iron deficiency anemia, unspecified
CPT/HCPCS: 36415; 76770; 80048; 80053; 80202; 81003; 81015; 82306; 82570; 82728; 83540; 83550; 83880; 83970; 84100; 84300; 84443; 84484; 85025; 89190; 93005; 93306; 93970; 96365; J1644; J1940; J2405; J3370; J3490; J7050

== ENCOUNTER 2021-11-23 08:45 | Outpatient (CLI) | payer MEDICARE, BC | END 2021-11-23 08:46 | disposition home or self-care (01) | LOC: NM 08:45 | PROVIDERS: ATTEND Internal Medicine Nephrology | DX: E21.0 Primary hyperparathyroidism (principal) | CPT/HCPCS: 78072; A9500 ==

== ENCOUNTER 2021-12-29 07:51 | Outpatient (CLI) | payer MEDICARE, BC ==
[2021-12-29] MEDS ORDERED: Iopamidol-370 76% 500 ML 1 ML ONE (11:04)
== END 2021-12-29 07:52 | disposition home or self-care (01) ==
LOC: CT 07:51
PROVIDERS: ATTEND Otolaryngology Plastic Surgery within the Head & Neck
DX: E21.3 Hyperparathyroidism, unspecified (principal)
CPT/HCPCS: 70492; 82565

== ENCOUNTER 2022-09-18 19:56 | Inpatient (IN) | payer MEDICARE, BC ==
[2022-09-18 21:19] LABS: #Eosinphils 0.1 thou/uL (0.0-0.7); #Lymphocytes 1.2 thou/uL (1.20-3.40); #Monocytes 0.4 thou/uL (0.11-0.59); #Neutrophils 4.3 thou/uL (1.40-6.50); %Basophils 0.3 % (0.0-1.0); %Eosinophils 0.9 % (0.0-10.0); %Lymphocytes 19.7 % (21.0-51.0); %Monocytes 6.3 % (0.0-10.0); %Neutrophils 72.9 % (42.0-75.0); Hemoglobin 10.7 g/dL (12.0-16.0); Mean Corpuscular HGB CONC 31.9 g/dL (32.0-36.0); Mean Corpuscular Hemoglobin 31.1 pg (27.0-31.0); Mean Corpuscular Volume 97.4 fl (78.0-98.0); Mean Platelet Volume 6.8 fL (7.4-10.4); Platelet Count 324 10x3/uL (130-400); RBC Distribution Width 15.4 % (11.5-14.5); Red Blood Cell (RBC) Count 3.46 mill/uL (4.20-5.40); White Blood Cell (WBC) Count 5.9 10x3/uL (4.8-10.8)
[2022-09-18] MEDS ORDERED: hydrOXYzine 25 MG TAB ONE (21:26)
[2022-09-18 21:34] LABS: ALT (SGPT) 11 U/L (8-55); AST (SGOT) 15 U/L (5-34); Albumin 3.6 g/dL (3.4-4.8); Alkaline Phosphatase 58 U/L (40-110); Anion Gap 21 mmol/L (10-20); BUN (Urea Nitrogen) 11 mg/dL (9.8-20.1); Bilirubin, Total 0.4 mg/dL (0.2-1.2); Calc. Creatinine Clearance 0 mL/min (70-130); Calcium 9.6 mg/dL (7.8-10.44); Carbon Dioxide 20 mmol/L (23-31); Chloride 102 mmol/L (98-107); Estimated GFR 93; Globulin 2.8 g/dL (2.4-3.5); Glucose 92 mg/dL (80-115); Potassium 4.6 mmol/L (3.5-5.1); Protein, Total 6.4 g/dL (5.8-8.1); Sodium 138 mmol/L (136-145)
[2022-09-18 21:35] LABS: INR-International Normal Ratio 1.3; PTT 38.3 sec (22.9-36.1); Prothrombin Time 16.8 sec (12.0-14.7)
[2022-09-18] MEDS ORDERED: Pantoprazole 40 MG VIAL ONE (21:48)
[2022-09-18] MEDS ORDERED: Ondansetron PF 4 MG/2 ML Vial IVP PRN (23:04)
[2022-09-18] MEDS ORDERED: Acetaminophen 325 MG TAB PO PRN (23:04)
[2022-09-18] MEDS ORDERED: Ondansetron ODT 4 MG TAB PO PRN (23:04)
[2022-09-18] MEDS ORDERED: Heparin 25,000 units/D5W 500 ML IVPB SCH (23:15)
[2022-09-18] MEDS ORDERED: Heparin 10,000 UNITS/ 10 ML VIAL SLOW IVP SCH (23:15)
[2022-09-18] MEDS ORDERED: Fluticasone Propionate Nasal Spray 16 gm Bottle NASAL PRN (23:26)
[2022-09-18 23:35] LABS: Hemoglobin 10.4 g/dL (12.0-16.0); Platelet Count 328 10x3/uL (130-400)
[2022-09-19] MEDS: Lactated Ringer's 1,000 ML IV SCH ×3 (03:00→15:45)
[2022-09-19 03:07] VITALS: BMI 41.5
[2022-09-19 05:31] LABS: #Eosinphils 0.1 thou/uL (0.0-0.7); #Lymphocytes 1.5 thou/uL (1.20-3.40); #Monocytes 0.3 thou/uL (0.11-0.59); #Neutrophils 2.5 thou/uL (1.40-6.50); %Lymphocytes 33.4 % (21.0-51.0); %Monocytes 7.7 % (0.0-10.0); %Neutrophils 56.9 % (42.0-75.0); Hemoglobin 10.5 g/dL (12.0-16.0); Mean Corpuscular HGB CONC 33.1 g/dL (32.0-36.0); Mean Corpuscular Hemoglobin 31.8 pg (27.0-31.0); Mean Corpuscular Volume 96.1 fl (78.0-98.0); Mean Platelet Volume 6.6 fL (7.4-10.4); Platelet Count 300 10x3/uL (130-400); RBC Distribution Width 15.3 % (11.5-14.5); White Blood Cell (WBC) Count 4.4 10x3/uL (4.8-10.8)
[2022-09-19 06:37] LABS: ALT (SGPT) 10 U/L (8-55); AST (SGOT) 16 U/L (5-34); Albumin 3.5 g/dL (3.4-4.8); Alkaline Phosphatase 53 U/L (40-110); Anion Gap 19 mmol/L (10-20); BUN (Urea Nitrogen) 10 mg/dL (9.8-20.1); Bilirubin, Total 0.3 mg/dL (0.2-1.2); Calc. Creatinine Clearance 70 mL/min (70-130); Calcium 9.2 mg/dL (7.8-10.44); Carbon Dioxide 20 mmol/L (23-31); Chloride 104 mmol/L (98-107); Estimated GFR 95; Globulin 2.6 g/dL (2.4-3.5); Glucose 81 mg/dL (80-115); Potassium 4.5 mmol/L (3.5-5.1); Protein, Total 6.1 g/dL (5.8-8.1); Sodium 138 mmol/L (136-145)
[2022-09-19] MEDS: Amlodipine 10 MG TAB PO SCH (08:20)
[2022-09-19] MEDS: hydrOXYzine 25 MG TAB PO PRN ×3 (08:21→20:31)
[2022-09-19] MEDS: Pantoprazole 40 MG VIAL IVP SCH ×2 (08:21→20:31)
[2022-09-19] MEDS: Thiamine 100 MG TAB PO SCH (08:21)
[2022-09-19] MEDS: Folic Acid 1 MG TAB PO SCH (08:21)
[2022-09-19] MEDS: Metoprolol Tartrate 25 MG TAB PO SCH ×2 (08:22→20:30)
[2022-09-19] MEDS: DULoxetine 30 MG CAP PO SCH (08:22)
[2022-09-19] MEDS: Multivit, Therapeutic 1 TAB PO SCH (08:22)
[2022-09-19] MEDS ORDERED: Ergocalciferol 1.25 MG(50,000 UNITS) CAP PO SCH (09:00)
[2022-09-19] MEDS ORDERED: Buprenorphine Hcl [Belbuca] 450 MCG Film PO SCH (09:00)
[2022-09-19 19:50] LABS: Campy jejuni + coli by PCR Negative (Negative); STEC Shiga Toxin 1+2 Negative (Negative); Salmonella spp. by PCR Negative (Negative); Shigella spp + EIEC by PCR Negative (Negative)
[2022-09-19] MEDS: Apixaban 5 MG TAB PO SCH (20:30)
[2022-09-20] MEDS: hydrOXYzine 25 MG TAB PO PRN ×2 (00:24→10:29)
[2022-09-20] MEDS: Metoprolol Tartrate 25 MG TAB PO SCH (08:35)
[2022-09-20] MEDS: DULoxetine 30 MG CAP PO SCH (08:36)
[2022-09-20] MEDS: Amlodipine 10 MG TAB PO SCH (08:36)
[2022-09-20] MEDS: Pantoprazole 40 MG VIAL IVP SCH (08:36)
[2022-09-20] MEDS: Thiamine 100 MG TAB PO SCH (08:36)
[2022-09-20] MEDS: Apixaban 5 MG TAB PO SCH (08:36)
[2022-09-20] MEDS: Folic Acid 1 MG TAB PO SCH (08:36)
[2022-09-20] MEDS: Multivit, Therapeutic 1 TAB PO SCH (08:36)
[2022-09-20 09:03] LABS: #Eosinphils 0.2 thou/uL (0.0-0.7); #Lymphocytes 2.2 thou/uL (1.20-3.40); #Monocytes 0.4 thou/uL (0.11-0.59); #Neutrophils 2.7 thou/uL (1.40-6.50); %Basophils 0.6 % (0.0-1.0); %Eosinophils 2.9 % (0.0-10.0); %Lymphocytes 39.2 % (21.0-51.0); %Monocytes 7.6 % (0.0-10.0); %Neutrophils 49.7 % (42.0-75.0); Hemoglobin 10.9 g/dL (12.0-16.0); Mean Corpuscular HGB CONC 32.5 g/dL (32.0-36.0); Mean Corpuscular Volume 95.3 fl (78.0-98.0); Mean Platelet Volume 7.2 fL (7.4-10.4); Platelet Count 264 10x3/uL (130-400); RBC Distribution Width 15.6 % (11.5-14.5); Red Blood Cell (RBC) Count 3.52 mill/uL (4.20-5.40); White Blood Cell (WBC) Count 5.5 10x3/uL (4.8-10.8)
[2022-09-20 09:11] LABS: Anion Gap 20 mmol/L (10-20); BUN (Urea Nitrogen) 6 mg/dL (9.8-20.1); Calc. Creatinine Clearance 63 mL/min (70-130); Calcium 9.1 mg/dL (7.8-10.44); Carbon Dioxide 17 mmol/L (23-31); Chloride 103 mmol/L (98-107); Estimated GFR 90; Glucose 80 mg/dL (80-115); Potassium 4.2 mmol/L (3.5-5.1); Sodium 136 mmol/L (136-145)
[2022-09-20 11:35] VITALS: BP 152/84; TEMP 99.4
[2022-09-20] MEDS ORDERED: Metoprolol Tartrate 25 MG TAB PO SCH (21:00)
== END 2022-09-20 15:35 | DRG 378 ==
LOC: ERS 19:56 → NEURO 22:06
PROVIDERS: ADMIT Family Medicine; ATTEND Family Medicine
DX: K92.1 Melena (principal); D68.32 Hemorrhagic disorder due to extrinsic circulating anticoagulants; Z20.822 Contact with and (suspected) exposure to COVID-19; N18.9 Chronic kidney disease, unspecified; M19.90 Unspecified osteoarthritis, unspecified site; F41.9 Anxiety disorder, unspecified; E55.9 Vitamin D deficiency, unspecified; E78.00 Pure hypercholesterolemia, unspecified; G89.4 Chronic pain syndrome; Z96.653 Presence of artificial knee joint, bilateral; T45.515A Adverse effect of anticoagulants, initial encounter; I12.9 Hypertensive chronic kidney disease with stage 1 through stage 4 chronic kidney disease, or unspecified chronic kidney disease; Q77.4 Achondroplasia; Z79.01 Long term (current) use of anticoagulants; Z79.899 Other long term (current) drug therapy; Z86.718 Personal history of other venous thrombosis and embolism; Z86.711 Personal history of pulmonary embolism; Z86.73 Personal history of transient ischemic attack (TIA), and cerebral infarction without residual deficits
CPT/HCPCS: 36415; 80048; 80053; 82274; 85025; 85610; 85730; 86850; 86900; 86901; 87505; 96374; C9113; J7120; Q0162

== ENCOUNTER 2022-12-31 13:48 | Observation (INO) | payer MEDICARE, BC ==
[2022-12-31] MEDS ORDERED: Morphine 2 MG/ML VIAL ONE (14:48)
[2022-12-31 15:14] LABS: #Basophils 0.1 thou/uL (0.0-0.2); #Eosinphils 0.3 thou/uL (0.0-0.7); #Lymphocytes 2.1 thou/uL (1.20-3.40); #Monocytes 0.5 thou/uL (0.11-0.59); #Neutrophils 3.9 thou/uL (1.40-6.50); %Basophils 0.9 % (0.0-1.0); %Lymphocytes 30.7 % (21.0-51.0); %Monocytes 7.3 % (0.0-10.0); %Neutrophils 57.1 % (42.0-75.0); Mean Corpuscular HGB CONC 33.3 g/dL (32.0-36.0); Mean Corpuscular Hemoglobin 30.2 pg (27.0-31.0); Mean Corpuscular Volume 90.9 fl (78.0-98.0); Mean Platelet Volume 8.1 fL (7.4-10.4); Platelet Count 219 10x3/uL (130-400); RBC Distribution Width 12.4 % (11.5-14.5); Red Blood Cell (RBC) Count 3.64 mill/uL (4.20-5.40); White Blood Cell (WBC) Count 6.8 10x3/uL (4.8-10.8)
[2022-12-31 16:09] LABS: Bilirubin Negative (Negative); Blood, Urine Negative (Negative); Clarity Clear (Clear); Glucose, Urine (Dipstick) Normal (Negative); Ketone, Urine Negative (Negative); Leukocyte Negative Leu/uL (Negative); Nitrite Negative (Negative); Protein, Urine (Dipstick) 20 mg/dL (Neg-Trace); Specific Gravity, Urine 1.024 (1.002-1.036); Urobilinogen Normal mg/dL (Less than 2); pH, Urine 5.5 (5.0-9.0)
[2022-12-31 16:09] LABS: ALT (SGPT) 19 U/L (8-55); AST (SGOT) 25 U/L (5-34); Albumin 3.9 g/dL (3.4-4.8); Alkaline Phosphatase 68 U/L (40-110); Anion Gap 14 mmol/L (10-20); BUN (Urea Nitrogen) 31 mg/dL (9.8-20.1); Bilirubin, Total 0.3 mg/dL (0.2-1.2); Calc. Creatinine Clearance 0 mL/min (70-130); Carbon Dioxide 24 mmol/L (23-31); Chloride 109 mmol/L (98-107); Estimated GFR 44; Globulin 2.9 g/dL (2.4-3.5); Glucose 128 mg/dL (80-115); Potassium 3.9 mmol/L (3.5-5.1); Protein, Total 6.8 g/dL (5.8-8.1); Sodium 143 mmol/L (136-145)
[2022-12-31] MEDS ORDERED: Acetaminophen 325 MG TAB PO PRN (20:30)
[2022-12-31 21:22] VITALS: BMI 38.5
[2022-12-31 21:38] LABS: INR-International Normal Ratio 1.1; Prothrombin Time 14.5 sec (12.0-14.7)
[2022-12-31] MEDS ORDERED: Loperamide HCl 2 MG CAP PO PRN (22:11)
[2022-12-31] MEDS ORDERED: Apixaban 5 MG TAB PO SCH (22:11)
[2022-12-31] MEDS ORDERED: Fluticasone Propionate Nasal Spray 16 gm Bottle NASAL PRN (22:11)
[2022-12-31] MEDS ORDERED: Amlodipine 10 MG TAB PO SCH (22:11)
[2022-12-31] MEDS ORDERED: Morphine 4 MG/ML VIAL SLOW IVP SCH (22:15)
[2022-12-31] MEDS ORDERED: hydrOXYzine 25 MG TAB PO PRN (22:24)
[2022-12-31] MEDS ORDERED: Acetaminophen 500 MG TAB PO SCH (22:30)
[2022-12-31] MEDS ORDERED: Lactated Ringer's 500 ML IV SCH ×2 (22:30→23:15)
[2022-12-31] MEDS ORDERED: Sulfameth/Trimethoprim DS 800-160mg TAB PO SCH (22:30)
[2022-12-31 22:33] LABS: CRP (Inflammatory) 2.43 mg/dL (= or < 0.5); Magnesium 2.1 mg/dL (1.6-2.6)
[2022-12-31] MEDS ORDERED: Cyclobenzaprine 10 MG TAB PO PRN (23:02)
[2023-01-01] MEDS: HYDROcodone/Acetaminophen 10/325 mg Tablet PO SCH ×2 (00:32→06:30)
[2023-01-01 00:48] LABS: Amphetamine Not Detected (NotDetected); Barbiturates Screen Not Detected (NotDetected); Benzodiazepine Screen Detected (NotDetected); Cocaine Metabolite Screen Not Detected (NotDetected); Methadone Not Detected (NotDetected); Methamphetamine Not Detected (NotDetected); Opiate Screen Detected (NotDetected); Oxycodone Screen Not Detected (NotDetected); Phencyclidine (PCP) Not Detected (NotDetected); THC/Cannabinoid Screen Not Detected (NotDetected); Tricyclic Screen Not Detected (NotDetected)
[2023-01-01 04:45] LABS: #Eosinphils 0.3 thou/uL (0.0-0.7); #Monocytes 0.6 thou/uL (0.11-0.59); #Neutrophils 2.3 thou/uL (1.40-6.50); %Basophils 0.7 % (0.0-1.0); %Eosinophils 5.1 % (0.0-10.0); %Lymphocytes 38.2 % (21.0-51.0); %Monocytes 10.7 % (0.0-10.0); %Neutrophils 45.4 % (42.0-75.0); Hemoglobin 9.2 g/dL (12.0-16.0); Mean Corpuscular HGB CONC 33.8 g/dL (32.0-36.0); Mean Corpuscular Hemoglobin 31.1 pg (27.0-31.0); Mean Corpuscular Volume 92.1 fl (78.0-98.0); Mean Platelet Volume 7.6 fL (7.4-10.4); Platelet Count 210 10x3/uL (130-400); RBC Distribution Width 12.2 % (11.5-14.5); Red Blood Cell (RBC) Count 2.97 mill/uL (4.20-5.40); White Blood Cell (WBC) Count 5.1 10x3/uL (4.8-10.8)
[2023-01-01 05:08] LABS: Anion Gap 13 mmol/L (10-20); BUN (Urea Nitrogen) 27 mg/dL (9.8-20.1); Calc. Creatinine Clearance 38 mL/min (70-130); Calcium 8.1 mg/dL (7.8-10.44); Carbon Dioxide 21 mmol/L (23-31); Chloride 114 mmol/L (98-107); Estimated GFR 53; Glucose 92 mg/dL (80-115); Potassium 4.1 mmol/L (3.5-5.1); Sodium 144 mmol/L (136-145)
[2023-01-01] MEDS ORDERED: Acetaminophen 500 MG TAB PO SCH (06:00)
[2023-01-01] MEDS ORDERED: Ergocalciferol 1.25 MG(50,000 UNITS) CAP PO SCH (09:00)
[2023-01-01] MEDS ORDERED: Buprenorphine Hcl [Belbuca] 450 MCG Film PO SCH (09:00)
[2023-01-01] MEDS: Apixaban 5 MG TAB PO SCH ×2 (09:30→21:36)
[2023-01-01] MEDS: Amlodipine 10 MG TAB PO SCH (09:30)
[2023-01-01] MEDS: DULoxetine 30 MG CAP PO SCH (09:31)
[2023-01-01] MEDS: Multivit, Therapeutic 1 TAB PO SCH (09:31)
[2023-01-01] MEDS: Thiamine 100 MG TAB PO SCH (09:32)
[2023-01-01] MEDS: Folic Acid 1 MG TAB PO SCH (09:32)
[2023-01-01] MEDS: hydrOXYzine 25 MG TAB PO PRN ×2 (09:32→16:13)
[2023-01-01] MEDS: Morphine 4 MG/ML VIAL SLOW IVP PRN ×2 (09:33→16:13)
[2023-01-01] MEDS ORDERED: hydrALAZINE 20 MG/ML VIAL SLOW IVP PRN (15:52)
[2023-01-01] MEDS: hydrOXYzine 25 MG TAB PO SCH (18:20)
[2023-01-01] MEDS: Metoprolol Tartrate 25 MG TAB PO SCH (21:35)
[2023-01-01] MEDS: Sulfameth/Trimethoprim DS 800-160mg TAB PO SCH (21:36)
[2023-01-01] MEDS: Buprenorphine HCl 2 MG SL TAB PO SCH (21:37)
[2023-01-02] MEDS: hydrOXYzine 25 MG TAB PO SCH ×4 (00:19→18:21)
[2023-01-02 04:28] LABS: #Eosinphils 0.3 thou/uL (0.0-0.7); #Lymphocytes 1.8 thou/uL (1.20-3.40); #Monocytes 0.5 thou/uL (0.11-0.59); #Neutrophils 3.1 thou/uL (1.40-6.50); %Basophils 0.8 % (0.0-1.0); %Eosinophils 5.3 % (0.0-10.0); %Lymphocytes 31.6 % (21.0-51.0); %Monocytes 8.1 % (0.0-10.0); %Neutrophils 54.2 % (42.0-75.0); Hemoglobin 9.7 g/dL (12.0-16.0); Mean Corpuscular HGB CONC 32.9 g/dL (32.0-36.0); Mean Corpuscular Hemoglobin 30.5 pg (27.0-31.0); Mean Corpuscular Volume 92.5 fl (78.0-98.0); Mean Platelet Volume 7.4 fL (7.4-10.4); Platelet Count 247 10x3/uL (130-400); RBC Distribution Width 12.3 % (11.5-14.5); Red Blood Cell (RBC) Count 3.17 mill/uL (4.20-5.40); White Blood Cell (WBC) Count 5.6 10x3/uL (4.8-10.8)
[2023-01-02 04:56] LABS: Anion Gap 13 mmol/L (10-20); BUN (Urea Nitrogen) 25 mg/dL (9.8-20.1); Calc. Creatinine Clearance 38 mL/min (70-130); Calcium 8.6 mg/dL (7.8-10.44); Carbon Dioxide 22 mmol/L (23-31); Chloride 109 mmol/L (98-107); Estimated GFR 53; Glucose 102 mg/dL (80-115); Potassium 4.5 mmol/L (3.5-5.1); Sodium 139 mmol/L (136-145)
[2023-01-02] MEDS: Buprenorphine HCl 2 MG SL TAB PO SCH ×2 (07:35→20:17)
[2023-01-02] MEDS: DULoxetine 30 MG CAP PO SCH (09:26)
[2023-01-02] MEDS: Multivit, Therapeutic 1 TAB PO SCH (09:26)
[2023-01-02] MEDS: Amlodipine 10 MG TAB PO SCH (09:26)
[2023-01-02] MEDS: Thiamine 100 MG TAB PO SCH (09:26)
[2023-01-02] MEDS: Folic Acid 1 MG TAB PO SCH (09:26)
[2023-01-02] MEDS: Apixaban 5 MG TAB PO SCH ×2 (09:27→20:17)
[2023-01-02] MEDS: Metoprolol Tartrate 25 MG TAB PO SCH ×2 (09:27→20:17)
[2023-01-02] MEDS: Cyclobenzaprine 10 MG TAB PO PRN (18:39)
[2023-01-02] MEDS: Sulfameth/Trimethoprim DS 800-160mg TAB PO SCH (20:17)
[2023-01-03] MEDS: hydrOXYzine 25 MG TAB PO SCH ×3 (00:51→13:36)
[2023-01-03] MEDS: Cyclobenzaprine 10 MG TAB PO PRN (01:16)
[2023-01-03 04:58] LABS: #Eosinphils 0.4 thou/uL (0.0-0.7); #Lymphocytes 1.9 thou/uL (1.20-3.40); #Monocytes 0.5 thou/uL (0.11-0.59); #Neutrophils 3.4 thou/uL (1.40-6.50); %Basophils 0.3 % (0.0-1.0); %Eosinophils 5.9 % (0.0-10.0); %Lymphocytes 30.3 % (21.0-51.0); %Monocytes 8.3 % (0.0-10.0); %Neutrophils 55.2 % (42.0-75.0); Mean Corpuscular HGB CONC 33.2 g/dL (32.0-36.0); Mean Corpuscular Hemoglobin 30.7 pg (27.0-31.0); Mean Corpuscular Volume 92.4 fl (78.0-98.0); Mean Platelet Volume 7.5 fL (7.4-10.4); Platelet Count 233 10x3/uL (130-400); RBC Distribution Width 12.4 % (11.5-14.5); Red Blood Cell (RBC) Count 2.92 mill/uL (4.20-5.40); White Blood Cell (WBC) Count 6.1 10x3/uL (4.8-10.8)
[2023-01-03 05:33] LABS: Anion Gap 12 mmol/L (10-20); BUN (Urea Nitrogen) 30 mg/dL (9.8-20.1); Calc. Creatinine Clearance 37 mL/min (70-130); Calcium 8.1 mg/dL (7.8-10.44); Carbon Dioxide 20 mmol/L (23-31); Chloride 107 mmol/L (98-107); Estimated GFR 50; Glucose 99 mg/dL (80-115); Potassium 4.2 mmol/L (3.5-5.1); Sodium 135 mmol/L (136-145)
[2023-01-03] MEDS ORDERED: Ondansetron ODT 4 MG TAB PO SCH (09:45)
[2023-01-03] MEDS ORDERED: Ondansetron ORAL SOLN. 4 MG/5 ML UDCUP PO SCH (09:45)
[2023-01-03] MEDS: Folic Acid 1 MG TAB PO SCH (09:55)
[2023-01-03] MEDS: Metoprolol Tartrate 25 MG TAB PO SCH (09:55)
[2023-01-03] MEDS: Multivit, Therapeutic 1 TAB PO SCH (09:55)
[2023-01-03] MEDS: Apixaban 5 MG TAB PO SCH (09:55)
[2023-01-03] MEDS: Amlodipine 10 MG TAB PO SCH (09:56)
[2023-01-03] MEDS: Thiamine 100 MG TAB PO SCH (09:56)
[2023-01-03] MEDS: Buprenorphine HCl 2 MG SL TAB PO SCH (09:57)
[2023-01-03] MEDS: DULoxetine 30 MG CAP PO SCH (09:57)
[2023-01-03 12:59] VITALS: TEMP 98.1
[2023-01-03 16:30] VITALS: BP 121/59
== END 2023-01-03 17:30 ==
LOC: ERS 13:48 → 2NO 18:35
PROVIDERS: ADMIT Hospitalist; ATTEND Hospitalist
DX: R00.0 Tachycardia, unspecified (principal); R29.6 Repeated falls; N17.9 Acute kidney failure, unspecified; Q77.4 Achondroplasia; I10 Essential (primary) hypertension; E78.5 Hyperlipidemia, unspecified; K21.9 Gastro-esophageal reflux disease without esophagitis; I89.0 Lymphedema, not elsewhere classified; M19.90 Unspecified osteoarthritis, unspecified site; G89.4 Chronic pain syndrome; Z86.711 Personal history of pulmonary embolism; Z86.718 Personal history of other venous thrombosis and embolism; Z86.73 Personal history of transient ischemic attack (TIA), and cerebral infarction without residual deficits; Z79.01 Long term (current) use of anticoagulants; Z79.899 Other long term (current) drug therapy; Z20.822 Contact with and (suspected) exposure to COVID-19
CPT/HCPCS: 51701; 70450; 71045; 72170; 80048 ×3; 80306; 81003; 83735; 84484; 85025 ×3; 85610; 85730; 86140; 93005; 96374; 97116 ×2; 97530 ×2; 97535; 99285; J0571 ×3; U0003; U0005; 36415; 80053; 84443; 96376; G0378; J2270; J2272; J7120; Q0162

== ENCOUNTER 2023-01-29 05:14 | Emergency (ER) | payer MEDICARE, BC ==
[2023-01-29] MEDS ORDERED: Acetaminophen 500 MG TAB ONE (05:24)
== END 2023-01-29 07:22 | disposition home or self-care (01) ==
LOC: ERS 05:14
DX: S09.90XA Unspecified injury of head, initial encounter (principal); I10 Essential (primary) hypertension; E78.00 Pure hypercholesterolemia, unspecified; W18.30XA Fall on same level, unspecified, initial encounter
CPT/HCPCS: 70450; 72125

== ENCOUNTER 2023-02-27 16:17 | Outpatient (CLI) | payer MEDICARE, BC | END 2023-02-27 16:18 | disposition home or self-care (01) | LOC: ULT 16:17 | PROVIDERS: ATTEND Family Medicine | DX: I82.403 Acute embolism and thrombosis of unspecified deep veins of lower extremity, bilateral (principal); I80.209 Phlebitis and thrombophlebitis of unspecified deep vessels of unspecified lower extremity | CPT/HCPCS: 93970 ==

== ENCOUNTER 2023-07-24 17:45 | Observation (INO) | payer MEDICARE, BC ==
[2023-07-24 18:32] LABS: #Monocytes 0.4 thou/uL (0.11-0.59); %Basophils 0.5 % (0.0-1.0); %Eosinophils 0.4 % (0.0-10.0); %Lymphocytes 19.5 % (21.0-51.0); %Monocytes 6.3 % (0.0-10.0); %Neutrophils 72.9 % (42.0-75.0); Hematocrit 26.8 % (36.0-47.0); Hemoglobin 8.3 g/dL (12.0-16.0); Mean Platelet Volume 9.7 fL (7.4-10.4); Platelet Count 311 10x3/uL (130-400); RBC Distribution Width 14.3 % (11.5-14.5); Red Blood Cell (RBC) Count 3.19 mill/uL (4.20-5.40); White Blood Cell (WBC) Count 5.5 10x3/uL (4.8-10.8)
[2023-07-24] MEDS ORDERED: LORazepam 2 MG/ML SYR.(CARPUJECT) ONE ×2 (18:48→20:37)
[2023-07-24] MEDS ORDERED: Metoprolol Tartrate 50 MG TAB ONE (18:52)
[2023-07-24 19:05] LABS: ALT (SGPT) 7 U/L (8-55); AST (SGOT) 19 U/L (5-34); Albumin 3.9 g/dL (3.4-4.8); Alkaline Phosphatase 63 U/L (40-110); Anion Gap 15 mmol/L (10-20); BUN (Urea Nitrogen) 30 mg/dL (9.8-20.1); Bilirubin, Total 0.2 mg/dL (0.2-1.2); Calc. Creatinine Clearance 0 mL/min (70-130); Carbon Dioxide 27 mmol/L (23-31); Chloride 104 mmol/L (98-107); Estimated GFR 41; Globulin 2.9 g/dL (2.4-3.5); Glucose 114 mg/dL (80-115); Potassium 4.7 mmol/L (3.5-5.1); Protein, Total 6.8 g/dL (5.8-8.1); Sodium 141 mmol/L (136-145)
[2023-07-24 19:16] LABS: Magnesium 1.7 mg/dL (1.6-2.6)
[2023-07-24] MEDS ORDERED: HYDROcodone/Acetaminophen 10/325 mg Tablet ONE (20:37)
[2023-07-24] MEDS ORDERED: Metoprolol Tartrate 5 MG/5 ML VIAL ONE (20:37)
[2023-07-24 21:07] LABS: Bacteria/HPF None Seen HPF (None Seen); Bilirubin Negative (Negative); Blood, Urine Trace (Negative); CAUTI Indications for Culture Dysuria,urgency,freq; Clarity Clear (Clear); Glucose, Urine (Dipstick) Normal (Negative); Ketone, Urine Negative (Negative); Leukocyte Negative Leu/uL (Negative); Nitrite Negative (Negative); Protein, Urine (Dipstick) 70 mg/dL (Neg-Trace); RBC/HPF 0-3 HPF (0-3); Specific Gravity, Urine 1.011 (1.002-1.036); Squamous Epithelial None Seen HPF (0-3); Urobilinogen Normal mg/dL (Less than 2); WBC/HPF 0-3 HPF (0-3)
[2023-07-24 21:11] LABS: Urine Culture Reflex No No
[2023-07-24] MEDS ORDERED: hydrALAZINE 20 MG/ML VIAL ONE (21:35)
[2023-07-25 01:48] VITALS: BMI 38.2
[2023-07-25] MEDS ORDERED: hydrALAZINE 20 MG/ML VIAL SLOW IVP SCH (02:00)
[2023-07-25] MEDS ORDERED: Lactated Ringer's 1,000 ML IV SCH (02:15)
[2023-07-25] MEDS ORDERED: hydrALAZINE 20 MG/ML VIAL ONE (02:18)
[2023-07-25] MEDS ORDERED: hydrOXYzine 10 MG TAB PO PRN (02:20)
[2023-07-25] MEDS ORDERED: Amlodipine 5 MG TAB PO SCH ×2 (02:45→09:00)
[2023-07-25 03:07] LABS: #Basophils 0.1 thou/uL (0.0-0.2); #Eosinphils 0.1 thou/uL (0.0-0.7); #Monocytes 0.5 thou/uL (0.11-0.59); #Neutrophils 5.2 thou/uL (1.40-6.50); %Basophils 0.8 % (0.0-1.0); %Eosinophils 1.2 % (0.0-10.0); %Lymphocytes 23.2 % (21.0-51.0); %Monocytes 6.9 % (0.0-10.0); %Neutrophils 67.6 % (42.0-75.0); Hemoglobin 8.1 g/dL (12.0-16.0); Mean Corpuscular HGB CONC 31.2 g/dL (32.0-36.0); Mean Corpuscular Hemoglobin 26.1 pg (27.0-31.0); Mean Corpuscular Volume 83.9 fl (78.0-98.0); Mean Platelet Volume 9.5 fL (7.4-10.4); Platelet Count 328 10x3/uL (130-400); RBC Distribution Width 14.4 % (11.5-14.5); White Blood Cell (WBC) Count 7.7 10x3/uL (4.8-10.8)
[2023-07-25] MEDS ORDERED: Amlodipine 5 MG TAB ONE ×2 (03:16→08:18)
[2023-07-25 04:05] LABS: ALT (SGPT) 8 U/L (8-55); AST (SGOT) 18 U/L (5-34); Albumin 3.7 g/dL (3.4-4.8); Alkaline Phosphatase 57 U/L (40-110); Anion Gap 16 mmol/L (10-20); BUN (Urea Nitrogen) 26 mg/dL (9.8-20.1); Bilirubin, Total 0.2 mg/dL (0.2-1.2); Calc. Creatinine Clearance 36 mL/min (70-130); Calcium 8.9 mg/dL (7.8-10.44); Carbon Dioxide 24 mmol/L (23-31); Chloride 104 mmol/L (98-107); Estimated GFR 51; Globulin 2.6 g/dL (2.4-3.5); Glucose 100 mg/dL (80-115); Potassium 4.2 mmol/L (3.5-5.1); Protein, Total 6.3 g/dL (5.8-8.1); Sodium 140 mmol/L (136-145)
[2023-07-25 05:55] LABS: Acetaminophen Less than 10 mcg/mL (10.0-30.0); Alcohol Less than 10.0 mg/dL (Less than 10); Salicylate Less than 8.0 mg/dL (15.0-30.0)
[2023-07-25 06:01] LABS: Thyroid Stimulating Hormone 0.7978 uIU/mL (0.35-4.94)
[2023-07-25 07:05] LABS: HIV (1/2) Antibody/Antigen Non-Reactive (NonReactive); HIV 1/2 INDEX 0.14 S/CO (<1.00)
[2023-07-25] MEDS ORDERED: Metoprolol Tartrate 25 MG TAB ONE (08:18)
[2023-07-25] MEDS ORDERED: Metoprolol Tartrate 25 MG TAB PO SCH (09:00)
[2023-07-25] MEDS ORDERED: DULoxetine 30 MG CAP PO SCH (09:00)
[2023-07-25] MEDS ORDERED: ALPRAZolam 1 MG TAB PO SCH (09:00)
[2023-07-25] MEDS ORDERED: Gabapentin 100 MG CAP PO SCH (09:00)
[2023-07-25] MEDS ORDERED: Heparin 5,000 UNITS/ML VIAL SC SCH (09:00)
[2023-07-25 11:06] LABS: Syphilis Antibody Nonreactive (Nonreactive); Syphilis Antibody Index 0.05 S/CO (<1.00 Non-Reactive)
[2023-07-25 11:48] LABS: Magnesium 1.7 mg/dL (1.6-2.6); Phosphorus 3.1 mg/dL (2.3-4.7)
[2023-07-25 14:13] LABS: Amphetamine Not Detected (NotDetected); Barbiturates Screen Not Detected (NotDetected); Benzodiazepine Screen Detected (NotDetected); Cocaine Metabolite Screen Not Detected (NotDetected); Methadone Not Detected (NotDetected); Methamphetamine Not Detected (NotDetected); Opiate Screen Detected (NotDetected); Oxycodone Screen Not Detected (NotDetected); Phencyclidine (PCP) Not Detected (NotDetected); THC/Cannabinoid Screen Not Detected (NotDetected); Tricyclic Screen Not Detected (NotDetected)
[2023-07-25 15:31] VITALS: BP 142/74; TEMP 98.9
[2023-07-26] MEDS ORDERED: Amlodipine 10 MG TAB PO SCH (09:00)
== END 2023-07-25 15:15 | disposition home or self-care (01) ==
LOC: ERS 17:45 → ERHOLD 07-25 00:56 → T4-A 07-25 12:50
PROVIDERS: ADMIT Student in an Organized Health Care Education/Training Program; ATTEND Student in an Organized Health Care Education/Training Program
DX: G93.41 Metabolic encephalopathy (principal); I16.0 Hypertensive urgency; I12.9 Hypertensive chronic kidney disease with stage 1 through stage 4 chronic kidney disease, or unspecified chronic kidney disease; N18.32 Chronic kidney disease, stage 3b; D64.9 Anemia, unspecified; F41.8 Other specified anxiety disorders; I89.0 Lymphedema, not elsewhere classified; K21.9 Gastro-esophageal reflux disease without esophagitis; Z86.73 Personal history of transient ischemic attack (TIA), and cerebral infarction without residual deficits; Z86.711 Personal history of pulmonary embolism; Z79.899 Other long term (current) drug therapy; Z86.718 Personal history of other venous thrombosis and embolism
CPT/HCPCS: 70450; 71045; 80053; 80306; 80307; 81001; 82140; 83605; 83735 ×2; 84100; 84484; 85025; 86780; 87389; 93005; 96372; 96374; 96375; 96376 ×2; 99285; G0378 ×2; J0360 ×2; J2060; 36415; 84443; J1644